=== PATIENT | female | born 1985 | race Asian ===

== ENCOUNTER 2023-08-28 10:13 | Outpatient (REF) | payer MEDICAID, SELFPAY ==
--- NOTE | ~2023-08-28 | MM_ITS ---
EXAMINATION: MM SCREENING DIGITAL BREAST TOMOSYNTHESIS, BILATERAL CLINICAL INFORMATION: Screening. Asymptomatic. COMPARISON: Mammography: This study is compared with prior exams dating back to 2021. TECHNIQUE: Digital breast tomosynthesis is performed in both the craniocaudal and mediolateral oblique views along with computer-aided detection (CAD). Synthesized 2D images are generated from the tomosynthesis. FINDINGS: The breasts are extremely dense, which lowers the sensitivity of mammography (ACR BI-RADS breast composition Category d). There are no significant masses, abnormal calcifications, or other abnormalities. There is tissue marker in each breast from prior benign percutaneous biopsy. MM/MM tomosynthesis screening BI IMPRESSION: No mammographic evidence of malignancy. ASSESSMENT: BI-RADS BI-RADS 2 - Benign Findings RECOMMENDATION: Routine annual mammography screening. 1 year F/U This examination should not preclude the clinical evaluation of a suspicious palpable abnormality. This patient's information was entered into a reminder system with a target due date for their next mammogram.
== END 2023-08-28 10:14 | disposition home or self-care (01) ==
LOC: HO.MAMMO 10:13
PROVIDERS: PCP Registered Nurse; Visit Provider Registered Nurse
DX: Z12.31 Encounter for screening mammogram for malignant neoplasm of breast (principal)
CPT/HCPCS: 77063; 77067

== ENCOUNTER → 2023-08-28 11:45 | Outpatient (BNV) | payer MEDICAID, SELFPAY | PROVIDERS: PCP Registered Nurse; Visit Provider Radiology Diagnostic Radiology | DX: Z12.31 Encounter for screening mammogram for malignant neoplasm of breast (principal) | CPT/HCPCS: 77063; 77067 ==

== ENCOUNTER 2024-11-03 11:43 | Emergency (ER) | payer OTHER, SELFPAY ==
--- NOTE | ~2024-11-03 | CT_ITS ---
CLINICAL HISTORY: ? post op complication? uterus sx in [place] --- Additional Notes or Special Instructions: NEED PREG CT of the abdomen and pelvis utilizing intravenous contrast. No comparison. Findings: In the right hepatic lobe there is a small ill-defined hypodensity that is technically indeterminate. The gallbladder is unremarkable. No hydronephrosis. The spleen and pancreas are unremarkable. No abdominal aortic aneurysm. No diverticulitis is identified. Suspect previous appendectomy. There is no bowel obstruction. There is mild left-sided colonic wall thickening. The bladder is mildly distended. There are operative changes of the lower anterior abdominal wall. Hysterectomy. There is a small amount of free fluid in the pelvis. 3.7 cm left adnexal cyst is presumably in the ovary. There is moderate stool in the rectosigmoid. Impression: Small amount of free fluid in the pelvis. Left adnexal cyst likely physiologic. No definite abscess is seen at this time. Follow-up as clinically warranted. There is mild colonic wall thickening raising the possibility of colitis. Ill-defined hypodensity in the right hepatic lobes. This is likely associated with a subtle hepatic mass. Recommend comparison to prior imaging or further evaluation with MR nonemergent basis. This document has been electronically signed by: Chriss Johnson MD on 11/03/2024 18:33:27
--- NOTE | 2024-11-03 12:05 | ED.GENADULT ---
HPI - General Adult General Chief complaint: Urogenital-Female Stated complaint: uteral tumor surg 1m ago, tear at incision? Time Seen by Provider: 11/03/24 16:02 Related Data Allergies Allergy/AdvReac Type Severity Reaction Status Date / Time No Known Allergies Allergy Verified 11/03/24 12:10 [facility] Social History Social History Smoked in Last 30 Days: No Use of substances other than those prescribed or required for medical reasons: No Advance Directives: No Advance Directives Information Provided: No Do you have a plan to hurt others: No Plan Physical Exam ED Vital Signs: Vital Signs - 24 hr 11/03/24 12:06 Temperature 97.5 F Pulse Rate 60 Respiratory Rate 14 Blood Pressure 126/70 Pulse Oximetry 100 Oxygen Delivery Method Room Air BMI result Body Mass Index 20.7 Course Course Course Narrative: Rapid medical examination performed in triage by Elidia Tristan PA-C. Patient is a 39 year old assigned female at presenting to the emergency department with vaginal bleeding. Patient states that a month ago she had a uteruine / ovarian surgery in [place] and 3 days ago while lifting luggage she felt something tear and is now having vaginal bleeding. Detailed physical exam and review of systems are deferred to the day treatment clinician/art therapist. Labs ordered. Patient placed back in the waiting room pending room availability and results. Medications Administered Discontinued Medications Generic Name Dose Route Start Last Admin Trade Name Freq PRN Reason Stop Dose Admin Iohexol 100 ml 11/03/24 17:21 11/03/24 17:22 Iohexol 350 Mg/Ml 100 Ml Infus..Btl IV 11/03/24 17:22 85 ml ONCE ONE Administration Medical Decision Making Lab Data 11/03/24 12:19 11/03/24 12:19 Labs: Lab Results 11/03/24 11/03/24 Range/Units 12:19 18:40 WBC 5.2 (4.8-10.8) X10*3/uL RBC 5.63 H (4.20-5.50) X10*6/uL Hgb 11.9 L (12.0-16.0) g/dl Hct 39.6 (37.0-47.0) % MCV 70.3 L (80.0-98.0) fL MCH 21.1 L (27.0-33.0) pg MCHC 30.1 L (31.0-35.0) g/dl RDW 29.1 H (11.0-16.0) % Plt Count 267 (160-400) X10*3/uL MPV TNP Immature Gran % (Auto) Cancelled Neut % (Auto) Cancelled Lymph % (Auto) Cancelled [place] % (Auto) Cancelled Eos % (Auto) Cancelled Baso % (Auto) Cancelled Lymph # (Auto) Cancelled [place] # (Auto) Cancelled Eos # (Auto) Cancelled Baso # (Auto) Cancelled Abs Immat Gran (auto) Cancelled Absolute Neuts (auto) Cancelled Absolute Nucleated RBC 0.000 (0.0-0.012) X10*3/uL Nucleated RBC % (auto) 0.0 (0.0-0.2) /100WBC Neutrophils % (Manual) 66 (45-73) % Band Neutrophils % 0 L (3-5) % Lymphocytes % (Manual) 23 (20-40) % Atypical Lymphs % (Man) 1 (0-6) % Monocytes % (Manual) 6 (2-11) % Eosinophils % (Manual) 4 (0-4) % Abs Neuts (Manual) 3.4 (2.0-8.3) X10*3/uL Lymphocytes # (Manual) 1.2 (1.2-4.9) X10*3/uL Atyp Lymphs # (Manual) 0.1 x10*3/uL Monocytes # (Manual) 0.3 (0.1-1.2) X10*3/uL Eosinophils # (Manual) 0.2 (0.0-0.4) X10*3/uL Toxic Vacuolation PRESENT Platelet Estimate NORMAL (NORMAL) Plt Morphology Comment NORMAL RBC Morphology NOTED Hypochromasia 1+ (5-14) /OIF Microcytosis 2+ (15-30) /OIF Target Cells 1+ (5-14) /OIF Acanthocytes (Spur) 2+ (3-5) /OIF Smear Path Review SEE NOTE PT 11.4 (10.9-12.4) SEC INR 1.0 (0.9-1.1) Sodium 141 (135-145) mmol/L Potassium 3.6 (3.3-5.1) mmol/L Chloride 106 (96-108) mmol/L Carbon Dioxide 27 (22-29) mmol/L Anion Gap 12 (12-20) BUN 11 (9-16) mg/dL Creatinine 0.76 (0.5-1.4) mg/dL Estim Creat Clear Calc 89.6 Estimated GFR > 60 Random Glucose 75 (60-115) mg/dL Calcium 9.2 (8.4-10.2) mg/dL Total Bilirubin 0.3 (0.0-1.0) mg/dL AST 26 (5-31) U/L ALT 27 (0-31) U/L Alkaline Phosphatase 91 (39-117) U/L Total Protein 8.2 H (6.5-8.0) g/dL Albumin 4.5 (3.5-5.0) g/dL Beta HCG, Quant < 2 mIU/mL Urine Color Yellow Urine Appearance Clear Urine pH 6.0 (5.0-9.0) Ur Specific [place] >= 1.030 H (1.005-1.025) Urine Protein Negative (Neg-Trace) mg/dL Urine Glucose (UA) Negative (Negative) mg/dL Urine Ketones Negative (Negative) mg/dL Urine Blood Moderate (2+) H (Negative) Urine Nitrite Negative (Negative) Ur Leukocyte Esterase Small (1+) H (Negative) Urine RBC 3-5 H (0-2) /HPF Urine WBC 11-20 H (0-5) /HPF Ur Squamous Epith Cells 6-10 (0-2) /HPF Urine Bacteria None Seen (None Seen) Hyaline Casts 0-2 (0-2) /LPF Discharge Plan Discharge Clinical Impression: Ovarian cyst, Hepatic cyst Patient Disposition: Home, Self-Care Instructions: Ovarian Cyst (ED) Additional Instructions: A cyst was found in your liver. Please closely follow-up. Small risk of malignancy exists. Referrals: Natalie Kerr MD [Primary Care Provider, Internal Medicine] - 11/07/24 Brando Kern MD [Physician, EVENT SERVICES MANAGER] - 11/07/24 Referral Note: Follow-up with OBGYN on an outpatient basis Interventions: ED Discharge Assessment Last Done: 11/03/24 19:30 Discharge Date/Time: 11/03/24 19:30 Print Language: Kike
[2024-11-03 12:06] VITALS: BP 126/70; PULSE 60; RESP 14; TEMP 36.4; O2SAT 100; BMI 20.7
[2024-11-03 12:27] LABS: Hematocrit 39.6 % (37.0-47.0); Hemoglobin 11.9 g/dl (12.0-16.0); Mean Corpuscular HGB Conc 30.1 g/dl (31.0-35.0); Mean Corpuscular Hemoglobin 21.1 pg (27.0-33.0); Mean Corpuscular Volume 70.3 fL (80.0-98.0); NRBC Abs Auto 0.000 X10*3/uL (0.0-0.012); NRBC Pct Auto 0.0 /100WBC (0.0-0.2); Platelet Count 267 X10*3/uL (160-400); Red Blood Count 5.63 X10*6/uL (4.20-5.50); White Blood Count 5.2 X10*3/uL (4.8-10.8)
[2024-11-03 12:39] LABS: INTERNATIONAL NORM RATIO 1.0 (0.9-1.1); Prothrombin Time 11.4 SEC (10.9-12.4)
[2024-11-03 12:40] LABS: Alanine Aminotransferase 27 U/L (0-31); Albumin Level 4.5 g/dL (3.5-5.0); Alkaline Phosphatase 91 U/L (39-117); Anion Gap 12 (12-20); Aspartate Amino Transferase 26 U/L (5-31); Blood Urea Nitrogen 11 mg/dL (9-16); Calcium 9.2 mg/dL (8.4-10.2); Carbon Dioxide 27 mmol/L (22-29); Chloride 106 mmol/L (96-108); Creatinine Clr Calc Pharmacy 89.6; Estimated Glomerular Filt Rate > 60; Potassium 3.6 mmol/L (3.3-5.1); Sodium 141 mmol/L (135-145); Total Protein 8.2 g/dL (6.5-8.0)
[2024-11-03 13:00] LABS: Atypical Lymph Absolute Manual 0.1 x10*3/uL; Atypical Lymphs Percent Manual 1 % (0-6); Eosinophils Absolute Manual 0.2 X10*3/uL (0.0-0.4); Eosinophils Percent Manual 4 % (0-4); Lymphocytes Absolute Manual 1.2 X10*3/uL (1.2-4.9); Lymphocytes Percent Manual 23 % (20-40); Monocytes Absolute Manual 0.3 X10*3/uL (0.1-1.2); Monocytes Percent Manual 6 % (2-11); Neutrophils Percent Manual 66 % (45-73)
[2024-11-03 13:01] LABS: Band Neutrophils Percent 0 % (3-5); Neutrophils Absolute Manual 3.4 X10*3/uL (2.0-8.3); RBC Morphology NOTED
[2024-11-03 13:02] LABS: Microcytosis 2+ (15-30) /OIF
[2024-11-03 13:04] LABS: Acanthocytes 2+ (3-5) /OIF
[2024-11-03 13:07] LABS: Hypochromasia 1+ (5-14) /OIF; Target Cells 1+ (5-14) /OIF; Toxic Vacuolation PRESENT
[2024-11-03] MEDS: iohexoL 350 MG/ML 100 ML INFUS..BTL IV (17:22)
--- NOTE | 2024-11-03 17:53 | ED_ITS ---
HPI - Female Genitourinary General Chief complaint: Urogenital-Female Stated complaint: uteral tumor surg 1m ago, tear at incision? Time Seen by Provider: 11/03/24 16:02 History of Present Illness HPI Narrative: Patient is a 39-year-old female presented today with having lower abdominal pain after ovarian surgery about 2-1/2 weeks ago. Patient stated that she lifted something heavy 3 days ago then felt there was a pinkish discharge from her vagina. No discharge since currently no pain. No nausea no vomiting. She was able to get on a plane from [place] and [place] the [place]. No fever no chills. No coughing or congestion or upper respiratory symptoms. No change in bowel movement. Patient from home. She describes she had an mass in her abdomen and then had a resected. It was an open resection. Related Data Allergies Allergy/AdvReac Type Severity Reaction Status Date / Time No Known Allergies Allergy Verified 11/03/24 12:10 Review of Systems 2 Review of Systems: No fever no chills Positive abdominal pain 3 days ago. Yes all other systems are reviewed and are negative [facility] Past Medical History Attestation statement: The following information was validated with the patient. Social History Social History Advance Directives: No Advance Directives Information Provided: No Do you have a plan to hurt others: No Plan Physical Exam 2 Exam: Exam: Appearance: Alert. Oriented X3. No acute distress. Eyes: Pupils equal, round and reactive to light. ENT: Pharynx normal. Neck: Normal inspection. Neck supple. No lymph nodes noted. No crepitus CVS: Normal heart rate and rhythm. Pulses normal. Normal S1 and S2 Respiratory: No respiratory distress. Breath sounds normal. No Wheezing. No rales Abdomen: Soft and nontender. No rigidity. No distention. good BS x4. Patient's scar seems to be intact. Well healed. No discharge. Skin: Skin warm and dry. Normal skin color. Normal skin turgor. Extremities: No lower extremity edema. Neurovascular intact to all extremities. No Lacerations. No Rash Neuro: Oriented X 3. No motor deficit. No sensory deficit. Moving all extermities. No slurred speech Vital Signs: Vital Signs: Last Vital Signs Temp 98.1 F 11/03/24 18:31 Pulse 46 L 09/08/25 18:31 Resp 16 11/03/24 18:31 BP 132/50 L 11/03/24 18:31 Pulse Ox 100 11/03/24 18:31 O2 Del Method Room Air 11/03/24 18:31 BMI result Body Mass Index 20.7 Medications Administered Discontinued Medications Generic Name Dose Route Start Last Admin Trade Name Consuelo PRN Reason Stop Dose Admin Iohexol 100 ml 11/03/24 17:21 11/03/24 17:22 Iohexol 350 Mg/Ml 100 Ml Infus..Btl IV 11/03/24 17:22 85 ml ONCE ONE Administration Medical Decision Making Medical Decision Making [facility] Narrative: I reviewed patient's old record from [facility] as much as possible through group [employer] translate. Patient's seems like she had an pelvic mass that was removed in [facility] about 10 days ago. Patient [place] the [place] about 3[place]4 days ago at that time lifted something heavy and started having some mild abdominal pain which has subsequently subsided. My interpretation patient's urine negative for infection. Patient's electrolytes are normal. White count is normal. CT scan of the abdomen pelvis showed no acute abscess no perforation small amount of fluid in the pelvis likely physiologic. There is an ovarian cyst noted on the left side. Patient is status post hysterectomy during this procedure unlikely to have related issues. Patient also noted to have a liver cyst. Explained to patient need for follow-up for both. aware. Patient aware. Currently in stable condition will discharge home Differential Diagnosis Differential Diagnoses: The differential diagnosis associated with the presentation includes Ovarian cyst, bleed, abscess, perforation, foreign object Admission/Observation Consideration of admission/observation: Escalation of care including admission/observation considered Lab Data [facility] Lab Attestation statement: I reviewed the patient's lab results. 11/03/24 12:19 11/03/24 12:19 Labs: Lab Results 11/03/24 11/03/24 Range/Units 12:19 18:40 WBC 5.2 (4.8-10.8) X10*3/uL RBC 5.63 H (4.20-5.50) X10*6/uL Hgb 11.9 L (12.0-16.0) g/dl Hct 39.6 (37.0-47.0) % MCV 70.3 L (80.0-98.0) fL MCH 21.1 L (27.0-33.0) pg MCHC 30.1 L (31.0-35.0) g/dl RDW 29.1 H (11.0-16.0) % Plt Count 267 (160-400) X10*3/uL MPV TNP Immature Gran % (Auto) Cancelled Neut % (Auto) Cancelled Lymph % (Auto) Cancelled [place] % (Auto) Cancelled Eos % (Auto) Cancelled Baso % (Auto) Cancelled Lymph # (Auto) Cancelled [place] # (Auto) Cancelled Eos # (Auto) Cancelled Baso # (Auto) Cancelled Abs Immat Gran (auto) Cancelled Absolute Neuts (auto) Cancelled Absolute Nucleated RBC 0.000 (0.0-0.012) X10*3/uL Nucleated RBC % (auto) 0.0 (0.0-0.2) /100WBC Neutrophils % (Manual) 66 (45-73) % Band Neutrophils % 0 L (3-5) % Lymphocytes % (Manual) 23 (20-40) % Atypical Lymphs % (Man) 1 (0-6) % Monocytes % (Manual) 6 (2-11) % Eosinophils % (Manual) 4 (0-4) % Abs Neuts (Manual) 3.4 (2.0-8.3) X10*3/uL Lymphocytes # (Manual) 1.2 (1.2-4.9) X10*3/uL Atyp Lymphs # (Manual) 0.1 x10*3/uL Monocytes # (Manual) 0.3 (0.1-1.2) X10*3/uL Eosinophils # (Manual) 0.2 (0.0-0.4) X10*3/uL Toxic Vacuolation PRESENT Platelet Estimate NORMAL (NORMAL) Plt Morphology Comment NORMAL RBC Morphology NOTED Hypochromasia 1+ (5-14) /OIF Microcytosis 2+ (15-30) /OIF Target Cells 1+ (5-14) /OIF Acanthocytes (Spur) 2+ (3-5) /OIF PT 11.4 (10.9-12.4) SEC INR 1.0 (0.9-1.1) Sodium 141 (135-145) mmol/L Potassium 3.6 (3.3-5.1) mmol/L Chloride 106 (96-108) mmol/L Carbon Dioxide 27 (22-29) mmol/L Anion Gap 12 (12-20) BUN 11 (9-16) mg/dL Creatinine 0.76 (0.5-1.4) mg/dL Estim Creat Clear Calc 89.6 Estimated GFR > 60 Random Glucose 75 (60-115) mg/dL Calcium 9.2 (8.4-10.2) mg/dL Total Bilirubin 0.3 (0.0-1.0) mg/dL AST 26 (5-31) U/L ALT 27 (0-31) U/L Alkaline Phosphatase 91 (39-117) U/L Total Protein 8.2 H (6.5-8.0) g/dL Albumin 4.5 (3.5-5.0) g/dL Beta HCG, Quant < 2 mIU/mL Urine Color Yellow Urine Appearance Clear Urine pH 6.0 (5.0-9.0) Ur Specific [place] >= 1.030 H (1.005-1.025) Urine Protein Negative (Neg-Trace) mg/dL Urine Glucose (UA) Negative (Negative) mg/dL Urine Ketones Negative (Negative) mg/dL Urine Blood Moderate (2+) H (Negative) Urine Nitrite Negative (Negative) Ur Leukocyte Esterase Small (1+) H (Negative) Urine RBC 3-5 H (0-2) /HPF Urine WBC 11-20 H (0-5) /HPF Ur Squamous Epith Cells 6-10 (0-2) /HPF Urine Bacteria None Seen (None Seen) Hyaline Casts 0-2 (0-2) /LPF Independent Interpretation I performed an independent interpretation of an: CT Scan (No overt obstruction noted) Radiology Impression Discussion of test interpretation with radiology: I have reviewed the radiologist's reading. External Record Review External record reviewed: Outpatient record Social Determinants Patient?s care significantly limited by Social Determinants of Health including: Problems related to primary support group and Unemployment Discharge Plan Discharge Clinical Impression: Ovarian cyst, Hepatic cyst Patient Disposition: Home, Self-Care Instructions: Ovarian Cyst (ED) Additional Instructions: A cyst was found in your liver. Please closely follow-up. Small risk of malignancy exists. Referrals: Natalie Kerr MD [Primary Care Provider, Internal Medicine] - 11/07/24 Brando Kern MD [Physician, AIRPLANE RENTAL CLERK] - 11/07/24 Referral Note: Follow-up with OBGYN on an outpatient basis Print Language: Paraguayan
[2024-11-03 18:31] VITALS: BP 132/50; PULSE 46; RESP 16; TEMP 36.7; O2SAT 100
--- OUTSIDE RECORDS SUMMARY | 2024-11-03 18:31 | XMS_ITS | Patient Health Record ---
Author Organization [facility] [place] Address [address] [place] [address] Care Team Providers Care Sat Tutor Name Role Phone Javier Donaldson Unavailable [phone] Allergies No Known Allergies Reason For Referral No Information Social History Tobacco Use: Social History Observation Description Date Details (start date - stop date) Never Smoker NA - NA Tobacco Use/Smoking Question Answer Notes Are you a: nonsmoker Alcohol Screen Question Answer Notes Did you have a drink containing alcohol in the p ast year? No Points 0 Interpretation Negative Tobacco use other than smoking: Question Answer Notes Are you an other tobacco user? No Problems Problem Type SNOMED Code ICD Code Onset Dates Problem Status W/U Status Risk Notes Problem Acquired hallux valgus (40637008) Hallux valgus (acquired), left foot (M20.12) Active confirmed Plan Of Treatment No Information Insurance Providers Payer Name Payer Address Payer Phone Subscriber Number Group Number Insured Name Patient Relationship to Insured Coverage Start Date Coverage End Date Family Health Plan [address] [place] [id number] Prabhjot Ogden Self - patient is the insured Medical (General) History Surgical History Surgery Date(Month/Year)
--- OUTSIDE RECORDS SUMMARY | 2024-11-03 18:31 | XMS_ITS | Encounter Summary ---
Author Organization [employer] Address [address] [place] [address] Care Team Providers Care Quality Assurance Supervisor Final Name Role Phone Shakira Jay OYSTER HARVESTER Primary Care Provider [phone] Encounter Details Date Type Department Care Team (Late st Contact Info) Description 11/03/2024 Orders Only GENERIC EXTERNAL DATA DEPARTMENT Provider, Generic External Data Social History Tobacco Use Types Packs/Day Years Used Date Smoking Tobacco: Never Smokeless Tobacco: Never Alcohol Use Standard Drinks/Week Comments Never 0 (1 standard drink = 0.6 oz pur e alcohol) Depression Answer Date Recorded Patient Health Questionnaire-9 Score 3 08/03/2023 Patient Health Questionnaire-9 Score 3 08/03/2023 Last PHQ-9: Questionnaire Data Not on file 0 08/03/2023 Housing Stability Answer Date Recorded What is your housing situation today? I have adrienne john 08/03/[address] you li ve. Do you have problems with any of the following? None of the above 08/03/2023 Food Insecurity Answer Date Recorded Within the past 12 months, y ou worried that your food would run out before you got money to buy more: Never True 08/03/2023 Within the past 12 months,th e food you bought just didn't last and you didn't have enough money to get more: Never True 08/2023 Transportation Answer Date Recorded In the past 12 months, has l ack of transportation kept you from medical appts, meetings, work or from getting things needed for daily living? No 08/03/2023 Utilities Answer Date Recorded In the past 12 months, has t he electric, gas, oil or water company threatened to shut off services in your home? No 08/03/2023 Depression Answer Date Recorded Patient Health Questionnaire-2 Score 0 03/03/2024 Comments Unknown Sex and Gender Information Value Date Recorded Sex Assigned at Female 02/02/2022 10:31 AM EST Legal Sex Female 10:29 AM EST Gender Identity Female 02/02/2022 10:31 AM EST Sexual Orientation Straight 02/02/2022 10 :32 AM EST documented as of this encounter Plan of Treatment Upcoming Encounters Date Type Department Care Team (Late st Contact Info) Description 12/05/2024 11:00 AM EDT Office Visit [facility] [address] [place] [address] [place], [place], [facility] [address] [place] [address] Pending Results Name Type Priority Associated Diagnoses Date /Time CBC auto differential Lab Routine 09/2024 12:19 PM EDT documented as of this encounter Procedures Procedure Name Priority Date/Time Associated Diagnosis Comments COMPLETE BLOOD COUNT MAN DIF Routine 11/03/2024 12:19 PM EDT CBC WITH AUTO DIFFERENTIAL Routine 11/03/2024 12:19 PM EDT PROTHROMBIN TIME-INR Routine 11/03/2024 12:19 PM EDT HCG, TOTAL, QN Routine 11/03/2024 12:19 PM EDT COMPREHENSIVE METABOLIC PANEL Routine 11/03/2024 12:19 PM EDT documented in this encounter Results * hCG, Total, Quantitative (11/03/2024 12:19 PM EDT) HCG Quantitative <2 mIU/mL [facility] Comment:Weeks post LMP Appro ximate hCG(Last Menstrual Period) Range (mIU/ml)3 - 4 weeks 9 - 1304 - 5 weeks 75 - 2,6005 - 6 weeks 850 - 20,8006 - 7 weeks 4000 - 100,2007 - 12 weeks 11,500 - 289,15784 - 16 weeks 18,300 - 137,59950 - 29 weeks (2nd trimester) 1,400 - 53,57770 - 41 weeks (3rd trimester) 940 - 60,000The [place] B- hCG assay is used for the early detection ofpregnancy; it cannot be used to diagnose any conditionunrelated to . If a B-hCG level is not supportedby the clinical evidence, results should be confirmed by analternative method (qualitative urine hCG, for example). 11/03/2024 12:1 9 PM EDT 11/03/2024 12:22 PM EDT us Generic External Data Provider LAB BLOOD ORDERAB LES Final Result [facility] [address] [place] [address] [phone] * (ABNORMAL) Complete Blood Count Manual Diff (11/03/2024 12:19 PM EDT) White Blood Count 5.2 4.8 - 10.8 X10*3/uL [facility] Red Blood Count 5.63(H) 4.20 - 5.50 X10*6/uL [facility] Hemoglobin 11.9(L) 12.0 - 16.0 g/dl [facility] Hematocrit 39.6 37.0 - 47.0 % [facility] Mean Corpuscular Volume 70.3(L) 80.0 - 98.0 fL [facility] Mean Corpuscular Hemoglobin 21.1(L) 27.0 - 33.0 pg [facility] Mean Corpuscular HGB Conc 30.1(L) 31.0 - 35.0 g/dl [facility] Red Cell Distribution Width 29.1(H) 11.0 - 16.0 % [facility] Platelet Count 267 160 - 400 X10*3/uL [facility] Mean Platelet Volume TNP 9.4 - 12.3 fL [facility] NRBC Pct Auto 0.0 0.0 - 0.2 /100WBC [facility] NRBC Abs Auto 0.000 0.0 - 0.012 X10*3/uL [facility] Neutrophils % Manual 66 45 - 73 % [facility] Band Neutrophils Percent 0(L) 3 - 5 % [facility] Lymphocytes Percent Manual 23 20 - 40 % [facility] Atypical Lymphs Percent Manual 1 0 - 6 % [facility] Monocytes Percent Manual 6 2 - 11 % [facility] EOSINOPHILS % MANUAL 4 0 - 4 % [facility] NEUTROPHILS ABSOLUTE MANUAL 3.4 2.0 - 8.3 X10*3/uL [facility] LYMPHOCYTES ABSOLUTE MANUAL 1.2 1.2 - 4.9 X10*3/uL [facility] Atypical Lymph Absolute Manual 0.1 x10*3/uL [facility] MONOCYTES ABSOLUTE MANUAL 0.3 0.1 - 1.2 X10*3/uL [facility] EOSINOPHILS ABSOLUTE MANUAL 0.2 0.0 - 0.4 X10*3/uL [facility] Platelet Estimate NORMAL NORMAL [facility] Platelet Morphology Comment NORMAL [facility] RBC Morphology NOTED [facility] Hypochromasia 1+ (5-14) /[facility] Microcytosis 2+ (15-30) /[facility] Target Cells 1+ (5-14) /[facility] Toxic Vacuolation PRESENT [facility] Acanthocytes 2+ (3-5) /[facility] 11/03/2024 12:1 9 PM EDT 11/03/2024 12:22 PM EDT us Generic External Data Provider LAB BLOOD ORDERAB LES Final Result [facility] [address] [place] [address] [phone] * (ABNORMAL) Comprehensive Metabolic Panel (11/03/2024 12:19 PM EDT) Sodium 141 135 - 145 mmol/L [facility] Potassium 3.6 3.3 - 5.1 mmol/L [facility] Chloride 106 96 - 108 mmol/L [facility] Carbon Dioxide 27 22 - 29 mmol/L [facility] Anion Gap 12 12 - 20 [facility] Urea Nitrogen (BUN) 11 9 - 16 mg/dL [facility] Creatinine, Serum 0.76 0.5 - 1.4 mg/dL [facility] Creatinine Clr Calc Pharmacy 89.6 [facility] Comment:Provided height and weight: 167.64 cm,58.3 kg.eGFR (calculated from the MDRD study equation) and eCrCl(calculated from the Cockcroft-Gault equation) are based ondifferent parameters and may not yield comparable results.If eCrCl result is absurd, please check patient'sheight/weight. Estimated Glomerular Filt Rate >60 [facility] Comment:Chronic Kidney Disea se: Estimated GFR < 60 mL/min/1.03p2Xambxc Kidney Disease: Estimated GFR < 15 mL/min/1.73m2 Glucose 75 60 - 115 mg/dL [facility] Calcium 9.2 8.4 - 10.2 mg/dL [facility] Bilirubin, Total 0.3 0.0 - 1.0 mg/dL [facility] Aspartate Amino Transferase 26 5 - 31 U/L [facility] Alanine Aminotransferase 27 0 - 31 U/L [facility] Total Protein 8.2(H) 6.5 - 8.0 g/dL [facility] Albumin Level 4.5 3.5 - 5.0 g/dL [facility] Alkaline Phosphatase 91 39 - 117 U/L [facility] 11/03/2024 12:1 9 PM EDT 11/03/2024 12:22 PM EDT us Generic External Data Provider LAB BLOOD ORDERAB LES Final Result [facility] [address], [place] [phone] * Prothrombin Time-INR (11/03/2024 12:19 PM EDT) Prothrombin Time 11.4 10.9 - 12.4 SEC [facility] INTERNATIONAL NORM RATIO 1.0 0.9 - 1.1 [facility] Comment:INTERNATIONAL NORMAL IZED RATIO (INR) REFERENCE RANGES Reference RangeFor patients not on anticoagulant therapy: 0.9 - 1.1INR ranges for oral anticoagulanttherapy:For prevention and treatment of venous thrombosis and pulmonary embolism: 2.0 - 3.0For acute myocardial infarction with aspirin therapy: 2.0 - 3.0For acute myocardial infarction without aspirin therapy: 3.0 - 4.0For patients with mechanical prosthetic heart valves: 2.5 - 3.5 11/03/2024 12:1 9 PM EDT 11/03/2024 12:22 PM EDT us Generic External Data Provider LAB BLOOD ORDERAB LES Final Result [facility] [address] [place] [address] [phone] documented in this encounter Visit Diagnoses Not on filedocumented in this encounter Additional Health Concerns Assessment Noted Time PHQ-9 Depression Total Score: 3 08/03/19 24 9:23 AM EDT documented as of this encounter Care Teams Quality Assurance Supervisor Final Relationship Specialty Start Date End Date Shakira Jay FNP [address] [place] [address] PCP - General Family Medicine 02/16/22 documented as of this encounter
--- OUTSIDE RECORDS SUMMARY | 2024-11-03 18:31 | XMS_ITS | Clinical Summary ---
Author Organization [employer] Address [address] [place] [address] Care Team Providers Care Web Offset Press Feeder Name Role Phone Shakira Jay [facility] Primary Care Provider [phone] Allergies No known active allergies Medications cetirizine (ZyrTEC) 10 MG tabletIndication s:Rash and nonspecific skin eruption Take 1 tablet (10 mg) by mouth Once per day. 90 tablet 3 5 03/03/19 26 Active Additional Information Patient not taking.Reported on 08/07/2024 hydrOXYzine HCl (Atarax) 25 MG tabletIndication s:Anxiety Take 1 tablet (25 mg) by mouth if needed at bedtime for anxiety. 90 tablet 1 5 03/03/19 26 Active Additional Information Patient not taking.Reported on 08/07/2024 triamcinolone (Kenalog) 0.1 % ointmentIndicati ons:Rash and nonspecific skin eruption Apply topically 2 times daily. 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 Hives of unknown origin 01/17/2024 MC (molluscum contagiosum) 01/17/2024 Abdominal mass, left lower quadrant 09/06/2023 Constipation 08/11/2023 Early satiety 08/11/2023 Eczema 08/11/2023 Pityriasis rosea 08/11/2023 Encounters Date Type Department Care Team Description 11/03/2024 Orders Only GENERIC EXTERNAL DATA DEPARTMENT Provider, Generic External Data 08/07/2024 8:00 AM EDT Office Visit [facility] [address] [place] [address] Yasmine العلي Dental calculus (Primary Dx); Dental plaque from Last 3 Months Social History Tobacco Use Types Packs/Day Years Used Date Smoking Tobacco: Never Smokeless Tobacco: Never Tobacco Cessation:Counseling Given: Not Answered Alcohol Use Standard Drinks/Week Comments Never 0 [...] Orientation Straight 02/02/2022 10 :32 AM EST Last Filed Vital Signs Vital Sign Reading Time Taken Comments Blood Pressure 110/68 08/07/2024 8:10 AM EDT Pulse 72 03/03/2024 9:10 AM EST Temperature 36.2 C (97.1 F) 03/03/2024 9:10 AM EST Respiratory Rate 16 03/03/2024 9:10 AM EST Oxygen Saturation 99% 03/03/2024 9:10 AM EST Inhaled Oxygen Concentration - - Weight 60.8 kg (134 lb) 03/03/2024 9:10 AM EST Height 167.6 cm (5' 6 ) 03/03/2024 9:10 AM EST Body Mass Index 21.63 03/03/2024 9:10 AM EST Plan of Treatment Upcoming Encounters Date Type Department Care Team (Late st Contact Info) Description 12/05/2024 11:00 AM EDT Office Visit [facility] [address], [place] [phone] [place], [place], [facility] [address] [place] [address] Health Maintenance Due Date Last Done Comments HIV Screening 1985 Disability Screening 1983 Alcohol/Substance Use Screening 1995 Family Planning (PISQ) 1998 HPV Vaccines (1 - 3-dose series) 1998 Hepatitis C Screening 2001 DTaP/Tdap/Td Vaccines (1 - Tdap) 2002 Hepatitis B Vaccines (1 of 3 - 19+ 3-dose series) 2002 Pap Smear 2004 Cervical Cancer Screening 2013 HPV/Cotest 2013 SDOH Screening 08/02/2024 08/03/2023 Mammogram 08/27/2024 08/28/2023 COVID-19 Vaccine ( season) 2024 11/04/2020, 09/20/2020 Influenza Vaccine (#1) 2024 , 04/29/2019, 04/29/2019, Additional history exists Dental X-Ray: Bitewings 01/31/2025 01/31/2024 Dental Oral Exam 02/07/2025 08/07/2024, 01/31/2024 Dental Prophylaxis 02/07/2025 08/07/2024, 01/31/2024 Depression Screening 03/03/2025 03/03/2024, 08/03/19 Tobacco Screening 08/07/2025 08/07/2024 Dental X-Ray: Full Mouth 01/31/2027 01/31/2024 Zoster Vaccines (1 of 2) 2033 RSV Patients and Patients Aged 60 years or older (1 - 1-dose 75+ series) 2058 HIB Vaccines Aged Out No longer eligi ble based on patient's age to complete this topic Hepatitis A Vaccines Aged Out No long er eligible based on patient's age to complete this topic IPV Vaccines Aged Out No longer eligi ble based on patient's age to complete this topic Meningococcal B Vaccine Aged Out No l onger eligible based on patient's age to complete this topic Meningococcal Vaccine Aged Out No deniz sera eligible based on patient's age to complete this topic Pneumococcal Vaccine: Pediatrics (0 to 5 Years) and At-Risk Patients (6 to 49) Years Aged Out No longer eligible based on patient's age to complete this topic RSV under 20 months Aged Out No longe r eligible based on patient's age to complete this topic Rotavirus Vaccines Aged Out No longer eligible based on patient's age to complete this topic Procedures Procedure Name Priority Date/Time Associated Diagnosis Comments HCG, TOTAL, QN Routine 11/03/2024 12:19 PM EDT COMPLETE BLOOD COUNT MAN DIF Routine 11/03/2024 12:19 PM EDT COMPREHENSIVE METABOLIC PANEL Routine 11/03/2024 12:19 PM EDT PROTHROMBIN TIME-INR Routine 11/03/2024 12:19 PM EDT CBC WITH AUTO DIFFERENTIAL Routine 11/03/2024 12:19 PM EDT PERIODIC ORAL EVALUATION - ESTABLISHED PATIENT Routine 08/07/2024 8:00 AM EDT ORAL HYGIENE INSTRUCTIONS Routine 08/07/2024 8:00 AM EDT Dental calculus Dental plaque PROPHYLAXIS - ADULT Routine 08/07/2024 8 :00 AM EDT Dental calculus Dental plaque INTRAORAL - COMPLETE SERIES OF RADIOGRAPHIC IMAGES Routine 01/31/2024 8:00 AM EST BI MAMMOGRAM SCREENING TOMOSYNTHESIS BILATERAL Routine 08/28/2023 11:20 AM EDT Screening mammogram for breast cancer from Last 3 Months or Most Recently Relevant to Health Maintenance Results * (ABNORMAL) Complete Blood Count Manual Diff (11/03/2024 12:19 PM EDT) White Blood Count 5.2 4.8 - 10.8 X10*3/uL [facility] Red Blood Count 5.63(H) 4.20 - 5.50 X10*6/uL [facility] Hemoglobin 11.9(L) 12.0 - 16.0 g/dl [facility] Hematocrit 39.6 37.0 - 47.0 % [facility] Mean Corpuscular Volume 70.3(L) 80.0 - 98.0 fL [facility] Mean Corpuscular Hemoglobin 21.1(L) 27.0 - 33.0 pg [facility] Mean Corpuscular HGB Conc 30.1(L) 31.0 - 35.0 g/dl [facility] Red Cell Distribution Width 29.1(H) 11.0 - 16.0 % [facility] Platelet Count 267 160 - 400 X10*3/uL [facility] Mean Platelet Volume TNP 9.4 - 12.3 fL [facility] NRBC Pct Auto 0.0 0.0 - 0.2 /100WBC [facility] NRBC Abs Auto 0.000 0.0 - 0.012 X10*3/uL [facility] Neutrophils % Manual 66 45 - 73 % [facility] Band Neutrophils Percent 0(L) 3 - 5 % [facility] Lymphocytes Percent Manual 23 20 - 40 % [facility] Atypical Lymphs Percent Manual 1 0 - 6 % [facility] Monocytes Percent Manual 6 2 - 11 % [facility] EOSINOPHILS % MANUAL 4 0 - 4 % [facility] NEUTROPHILS ABSOLUTE MANUAL 3.4 2.0 - 8.3 X10*3/uL [facility] LYMPHOCYTES ABSOLUTE MANUAL 1.2 1.2 - 4.9 X10*3/uL [facility] Atypical Lymph Absolute Manual 0.1 x10*3/uL [facility] MONOCYTES ABSOLUTE MANUAL 0.3 0.1 - 1.2 X10*3/uL [facility] EOSINOPHILS ABSOLUTE MANUAL 0.2 0.0 - 0.4 X10*3/uL [facility] Platelet Estimate NORMAL NORMAL [facility] Platelet Morphology Comment NORMAL [facility] RBC Morphology NOTED [facility] Hypochromasia 1+ (5-14) /[facility] Microcytosis 2+ (15-30) /[facility] Target Cells 1+ (5-14) /[facility] Toxic Vacuolation PRESENT [facility] Acanthocytes 2+ (3-5) /[facility] 11/03/2024 12:1 9 PM EDT 11/03/2024 12:22 PM EDT Generic External Data Provider LAB BLOOD ORDERAB LES Final Result Performing Organization Address [facility] Co de Phone Number [facility] [address] [place] [phone] * Prothrombin Time-INR (11/03/2024 12:19 PM EDT) Prothrombin Time 11.4 10.9 - 12.4 SEC [facility] INTERNATIONAL NORM RATIO 1.0 0.9 - 1.1 [facility] Comment:INTERNATIONAL NORMAL IZED RATIO (INR) REFERENCE [...] Provider LAB BLOOD ORDERAB LES Final Result Performing Organization Address [facility] Co de Phone Number [facility] [address] [place] [phone] * hCG, Total, Quantitative (11/03/2024 12:19 PM EDT) HCG Quantitative <2 mIU/mL [facility] Comment:Weeks post LMP Appro ximate hCG(Last Menstrual Period) Range (mIU/ml)3 - 4 weeks 9 - 1304 - 5 weeks 75 - 2,6005 - 6 weeks 850 - 20,8006 - 7 weeks 4000 - 100,2007 - 12 weeks 11,500 - 289,04768 - 16 weeks 18,300 - 137,19364 - 29 weeks (2nd trimester) 1,400 - 53,06705 - 41 weeks (3rd trimester) 940 - [...] Provider LAB BLOOD ORDERAB LES Final Result [facility] [address] [place] [phone] * (ABNORMAL) Comprehensive Metabolic Panel (11/03/2024 12:19 PM EDT) Sodium 141 135 - 145 mmol/L [facility] Potassium 3.6 3.3 - 5.1 mmol/L [facility] Chloride 106 96 - 108 mmol/L [facility] Carbon Dioxide 27 22 - 29 mmol/L [facility] Anion Gap 12 12 - 20 [facility] Urea Nitrogen (BUN) 11 9 - 16 mg/dL [facility] Creatinine, Serum 0.76 0.5 - 1.4 mg/dL [facility] Creatinine Clr Calc Pharmacy 89.6 [facility] Comment:Provided height and weight: 167.64 cm,58.3 kg.eGFR (calculated from the MDRD study equation) and eCrCl(calculated from the Cockcroft-Gault equation) are based ondifferent parameters and may not yield comparable results.If eCrCl result is absurd, please check patient'sheight/weight. Estimated Glomerular Filt Rate >60 [facility] Comment:Chronic Kidney Disea se: Estimated GFR < 60 mL/min/1.19l1Cnxdgk Kidney Disease: Estimated GFR < 15 mL/min/1.73m2 Glucose 75 60 - 115 mg/dL [facility] Calcium 9.2 8.4 - 10.2 mg/dL [facility] Bilirubin, Total 0.3 0.0 - 1.0 mg/dL [facility] Aspartate Amino Transferase 26 5 - 31 U/L [facility] Alanine Aminotransferase 27 0 - 31 U/L [facility] Total Protein 8.2(H) 6.5 - 8.0 g/dL [facility] Albumin Level 4.5 3.5 - 5.0 g/dL [facility] Alkaline Phosphatase 91 39 - 117 U/L [facility] 11/03/2024 12:1 9 PM EDT 11/03/2024 12:22 PM EDT us Generic External Data Provider LAB BLOOD ORDERAB LES Final Result [facility] [address] [place] [phone] * BI Mammogram Screening Tomosynthesis Bilateral (08/28/2023 11:20 AM EDT) Anatomical Region Laterality Modality Breast Bilateral Mammography 08/28/2023 11:2 0 AM EDT Narrative 09/26/2023 8:25 AM EDT [facility] [address] [place] [address] Mammography Report Signed Patient: Prabhjot Ogden MR#: [id number] 708 : 1985 Acct:[id number] Age/Sex: 38 / F ADM Date: 08/28/23 Loc: [facility] Attending Dr: Shakira Jay OPERATIONS SCHEDULER Ordering Physician: Shakira Jay OPERATIONS SCHEDULER Results: 2Beni gn Findings Date of Service: 08/28/23 Follow Up: 1 Year From Orig inal Mammogram Procedure(s): MM tomosynthesis screening BI Accession Number(s): [id number] cc: Shakira Jay OPERATIONS SCHEDULER EXAMINATION: MM SCREENING DIGITAL BREAST TOMOSYNTHESIS, BILATERAL CLINICAL INFORMATION: Screening. Asymptomatic. COMPARISON: Mammography: This study is compared with prior exams dating back to 2021. TECHNIQUE: Digital breast tomosynthesis is performed in both the craniocaudal and mediolateral oblique views along with computer-aided detection (CAD). Synthesized 2D images are generated from the tomosynthesis. FINDINGS: The breasts are extremely dense, which lowers the sensitivity of mammography (ACR BI-RADS breast composition Category d). There are no significant masses, abnormal calcifications, or other abnormalities. There is tissue marker in each breast from prior benign percutaneous biopsy. MM/MM tomosynthesis screening BI IMPRESSION: No mammographic evidence of malignancy. ASSESSMENT: BI-RADS BI-RADS 2 - Benign Findings RECOMMENDATION: Routine annual mammography screening. 1 year F/U This examination should not preclude the clinical evaluation of a suspicious palpable abnormality. This patient's information was entered into a reminder system with a target due date for their next mammogram. Dictated By: Jena Gaona MD Signed By: <Electronically signed by Jena Gaona MD in OV> 09/26/23 0820 DD/ 1120 TD/TT: Completion Manager: Procedure Note Donotuseinterpreter, Image - [facility]/26/2023 [facility] [address] [place] [address] Mammography Report Signed Patient: Radha OgdenVAR#: [id number] : 1985Acct:[id number] Age/Sex: 38 / FADM Date: 08/28/23 Loc: [facility] Attending Dr: Shakira Jay OPERATIONS SCHEDULER Ordering Physician: Shakira Jay FNPResults: 2Beni gn Findings Date of Service: 08/28/23Follow Up: 1 Year From Orig inal Mammogram Procedure(s): MM tomosynthesis screening BI Accession Number(s): [id number] cc: [facility] OPERATIONS SCHEDULER EXAMINATION: MM SCREENING DIGITAL BREAST TOMOSYNTHESIS, BILATERAL CLINICAL INFORMATION: Screening. Asymptomatic. COMPARISON: Mammography: This study is compared with prior exams dating back to 2021. TECHNIQUE: Digital breast tomosynthesis is performed in both the craniocaudal and mediolateral oblique views along with computer-aided detection (CAD). Synthesized 2D images are generated from the tomosynthesis. FINDINGS: The breasts are extremely dense, which lowers the sensitivity of mammography (ACR BI-RADS breast composition Category d). There are no significant masses, abnormal calcifications, or other abnormalities. There is tissue marker in each breast from prior benign percutaneous biopsy. MM/MM tomosynthesis screening BI IMPRESSION: No mammographic evidence of malignancy. ASSESSMENT: BI-RADS BI-RADS 2 - Benign Findings RECOMMENDATION: Routine annual mammography screening. 1 year F/U This examination should not preclude the clinical evaluation of a suspicious palpable abnormality. This patient's information was entered into a reminder system with a target due date for their next mammogram. Dictated By: Jena Gaona MD Signed By: <Electronically signed by Jena Gaona MD in OV> 09/26/23 0820 DD/ 1120 TD/TT: Completion Manager: [facility] OPERATIONS SCHEDULER IMG BI PROCEDURES Edited Resu lt - Final from Last 3 Months or Most Recently Relevant to Health Maintenance Insurance [facility] [place] [address] D[place] OF [place] PARTIAL (MEDICAID) Care Teams Web Offset Press Feeder Relationship Specialty Start Date End Date Shakira Jay FNP [address] [place] [phone] PCP - General Family Medicine 02/16/22
[2024-11-03 18:58] LABS: Appearance Urine Clear; Glucose Urine UA Negative (Negative); PH 6.0 (5.0-9.0); Specific Gravity - Urine >= 1.030 (1.005-1.025); UMIC TRIGGER UACC YES
[2024-11-03 19:14] LABS: UACC Culture Trigger YES
[2024-11-03 19:30] VITALS: BP 132/50; PULSE 46; RESP 16; TEMP 36.7; O2SAT 100
== END 2024-11-03 19:30 | disposition home or self-care (01) ==
PROVIDERS: Emergency Medicine; Physician Assistant Medical; Emergency Provider Emergency Medicine Emergency Medical Services; PCP General Practice
DX: N83.209 Unspecified ovarian cyst, unspecified side (principal); K76.89 Other specified diseases of liver; R10.30 Lower abdominal pain, unspecified; N89.8 Other specified noninflammatory disorders of vagina
CPT/HCPCS: 36415; 74177; 80053; 81001; 84702; 85007; 85027; 85610; 87086; 99284; 99285; Q9967

== ENCOUNTER → 2024-11-03 14:32 | Outpatient (BNV) | payer OTHER, SELFPAY | PROVIDERS: Emergency Provider Emergency Medicine Emergency Medical Services; PCP General Practice; Visit Provider Radiology Diagnostic Radiology | DX: N83.202 Unspecified ovarian cyst, left side (principal) | CPT/HCPCS: 74177 ==

== ENCOUNTER → 2025-01-06 10:42 | Outpatient (BNV) | payer OTHER, SELFPAY | PROVIDERS: PCP Registered Nurse; Visit Provider Radiology Diagnostic Radiology | DX: K76.89 Other specified diseases of liver (principal); N83.202 Unspecified ovarian cyst, left side; M47.816 Spondylosis without myelopathy or radiculopathy, lumbar region | CPT/HCPCS: 74183 ==

== ENCOUNTER 2025-01-06 10:43 | Outpatient (REF) | payer OTHER, SELFPAY ==
--- NOTE | ~2025-01-06 | MR_ITS ---
EXAMINATION: MR ABDOMEN WITHOUT AND WITH CONTRAST CLINICAL INFORMATION: Liver lesion detected on recent CT exam. COMPARISON: Correlated to CT dated November 03, 2024 TECHNIQUE: MR abdomen was performed without and with use of 6.0 mL intravenous [(Gadavist) gadolinium contrast. Postcontrast images are performed in multiphase dynamic sequences. Imaging was performed in 3 planes. No reported immediate complications. FINDINGS: LUNG BASES: No signal abnormality or enhancing mass. LIVER, GALLBLADDER, AND BILIARY TREE: Liver measures 16 cm. There is a 3.5 cm lobulated, well-defined, nonrestricted diffusion, isointense T1 and slightly hyperintense T2 with a hypointense T1 center lesion demonstrated peripheral portal venous phase enhancement and central delayed phase enhancement. Gallbladder is fluid-filled nondistended. No pericholecystic fluid collection or gallbladder wall thickening. No intraluminal signal abnormality. Common bile duct measures 4 mm. PANCREAS: Normal enhancement pattern of the parenchyma. No main pancreatic ductal dilatation. No peripancreatic fluid collection. No enhancing mass. No solid or cystic lesion. SPLEEN: 8 cm. No solid or cystic lesion. ADRENAL GLANDS: No nodular lesion. KIDNEYS AND URETERS: Normal enhancement pattern of the renal parenchyma. No hydronephrosis. No enhancing mass. No dilatation of the ureter. GASTROINTESTINAL TRACT: Abundant stool throughout the large intestine. No intestinal dilatation. No ascites. ABDOMINAL WALL: No gross umbilical hernia. LYMPH NODES: No mesenteric or retroperitoneal lymphadenopathy. VASCULAR: No aneurysm or dissection, abdominal aorta. OSSEOUS STRUCTURES: Decreased signal and height at the intervertebral disc L4-5 and L3-4 level. 5 cm fluid signal characteristic lesion, left adnexa. MR/MR abdomen wo/w con IMPRESSION: 3.5 cm focal nodular hyperplasia, right hepatic lobe. 5 cm cystic lesion, left adnexa. Spondylosis, L4-5 and L3-4. Electronically signed by: Sylvain Rodriguez MD 01/06/2025 11:58 AM EST
--- OUTSIDE RECORDS SUMMARY | 2025-01-06 12:28 | XMS_ITS | Clinical Summary ---
Author Organization [employer] Address [address] [place] [address] [address] [address] Care Team Providers Care Instructional Material Director Name Role Phone Shakira Jay [facility] Primary Care Provider [phone] Allergies No known active allergies Medications cetirizine (ZyrTEC) 10 MG tabletIndication s:Rash and nonspecific skin eruption Take 1 tablet (10 mg) by mouth Once per day. 90 tablet 3 5 03/03/19 26 Active hydrOXYzine HCl (Atarax) 25 MG tabletIndication s:Anxiety Take 1 tablet (25 mg) by mouth if needed at bedtime for anxiety. 90 tablet 1 5 03/03/19 26 Active triamcinolone (Kenalog) 0.1 % ointmentIndicati ons:Rash and nonspecific skin eruption Apply topically 2 times daily. 30 g 5 Active Active Problems Problem Noted Date Diagnosed Date Herpes simplex type 2 infection 01/17/2024 Hives of unknown origin 01/17/2024 MC (molluscum contagiosum) 01/17/2024 Abdominal mass, left lower quadrant 09/06/2023 Constipation 08/11/2023 Early satiety 08/11/2023 Eczema 08/11/2023 Pityriasis rosea 08/11/2023 Encounters Date Type Department Care Team Description 12/31/2024 Telephone [facility] [address] [place] [address] Shakira Jay FNP Letter for School/Work 12/08/2024 Telephone [facility] [address] [place] [address] Shakira Jay FNP pap update 12/05/2024 11:00 AM EDT Office Visit [facility] [address] [place] [address] [facility] Liver lesion, right lobe (Primary Dx); Adnexal cyst; Encounter for immunization; Encounter for screening mammogram for breast cancer 12/05/2024 Travel 12/04/2024 Telephone [facility] [address] [place] [address] [facility] chart prep 11/27/2024 Patient Outreach [facility] [address] [place] [address] [facility] 11/03/2024 Orders Only GENERIC EXTERNAL DATA DEPARTMENT Provider, Generic External Data from Last 3 Months Immunizations Immunization Administration Dates Next Due Influenza Whole 11/04/2020 Influenza, IIV3, injectable 04/29/2019, 6 Influenza, seasonal, injectable, preservative fr ee 12/05/2024,04/29/2019 MMR 09/01/2015 Tdap 09/01/2015 Social History Tobacco Use Types Packs/Day Years Used Date Smoking Tobacco: Never Smokeless Tobacco: Never Tobacco Cessation:Counseling Given: Not Answered Alcohol Use Standard Drinks/Week Comments Never 0 (1 standard drink = 0.6 oz pur e alcohol) Depression Answer Date Recorded Patient Health Questionnaire-9 Score 4 12/05/2024 Patient Health Questionnaire-9 Score 4 12/05/2024 Last PHQ-9: Questionnaire Data Not on file 1 Housing Stability Answer Date Recorded What is your housing situation today? I have adrienne john 12/05/[address] you li ve. Do you have problems with any of the following? None of the above 12/05/2024 Food Insecurity Answer Date Recorded Within the past 12 months, y ou worried that your food would run out before you got money to buy more: Never True 11/27/2024 Within the past 12 months,th e food you bought just didn't last and you didn't have enough money to get more: Never True 03/2024 Transportation Answer Date Recorded In the past 12 months, has l ack of transportation kept you from medical appts, meetings, work or from getting things needed for daily living? No 11/27/2024 Utilities Answer Date Recorded In the past 12 months, has t he electric, gas, oil or water company threatened to shut off services in your home? No 11/27/2024 Depression Answer Date Recorded Patient Health Questionnaire-2 Score 1 12/05/2024 Internet Access Answer Date Recorded Internet Access Q1 Yes 11/27/2024 Internet Access Q2 Not on file 11/27/2024 Comments Unknown Sex and Gender Information Value Date Recorded Sex Assigned at Female 02/02/2022 10:31 AM EST Legal Sex Female 10:29 AM EST Gender Identity Female 02/02/2022 10:31 AM EST Sexual Orientation Straight 02/02/2022 10 :32 AM EST Last Filed Vital Signs Vital Sign Reading Time Taken Comments Blood Pressure 110/78 12/05/2024 10:49 AM EDT Pulse 68 12/05/2024 10:49 AM EDT Temperature 36.4 C (97.6 F) 12/05/2024 10:49 AM EDT Respiratory Rate 12 12/05/2024 10:4 9 AM EDT Oxygen Saturation 99% 03/03/2024 9:10 AM EST Inhaled Oxygen Concentration - - Weight 60.7 kg (133 lb 12.8 oz) 025 10:49 AM EDT Height 167.6 cm (5' 6 ) 12/05/2024 10:4 9 AM EDT Body Mass Index 21.6 12/05/2024 10:49 AM EDT Plan of Treatment Upcoming Encounters Date Type Department Care Team (Late st Contact Info) Description 01/07/2025 9:00 AM EST Office Visit [facility] [address] [place] [address] [facility] [address] [place] [address] 03/03/2025 10:15 AM EST Office Visit [facility] [address] [place] [address] Yasmine العلي Health Maintenance Due Date Last Done Comments HIV Screening 1983 Alcohol/Substance Use Screening 1995 Family Planning (PISQ) 1998 HPV Vaccines (1 - 3-dose series) 1998 Hepatitis C Screening 2001 Hepatitis A Vaccines (1 of 2 - Risk 2-dose series) 2002 Hepatitis B Vaccines (1 of 3 - 19+ 3-dose series) 2002 Mammogram 08/27/2024 08/28/2023 COVID-19 Vaccine (3 - 2024- season) 2024 11/04/2020, 09/20/2020 Dental X-Ray: Bitewings 01/31/2025 01/31/2024 Dental Oral Exam 02/07/2025 08/07/2024, 01/31/2024 Dental Prophylaxis 02/07/2025 08/07/2024, 01/31/2024 DTaP/Tdap/Td Vaccines (2 - Td or Tdap) 08/31/2025 09/01/2015 Depression Screening 12/05/2025 12/05/2024, 12/06/19 25 Disability Screening 12/05/2025 12/05/2024 SDOH Screening 12/05/2025 12/05/2024 Tobacco Screening 12/05/2025 12/05/2024 Pap Smear 01/10/2026 01/10/2023 Dental X-Ray: Full Mouth 01/31/2027 01/31/2024 Cervical Cancer Screening 01/11/2028 HPV/Cotest 01/11/2028 01/10/2023 Zoster Vaccines (1 of 2) 2033 RSV Patients and Patients Aged 60 years or older (1 - 1-dose 75+ series) 2058 Influenza Vaccine Completed 12/05/2024, , 04/29/2019, Additional history exists HIB Vaccines Aged Out No longer eligi [...] Procedure Name Priority Date/Time Associated Diagnosis Comments MR ABDOMEN W AND WO CONTRAST Routine 01/06/2025 11:11 AM EST Liver lesion, right lobe CULTURE, URINE, ROUTINE Routine 11/03/2024 7:15 PM EDT URINALYSIS, COMPLETE, WITH REFLEX TO CULTURE Routine 11/03/2024 6:[address] ABDOMEN PELVIS W CONTRAST Routine 11/03/2024 6:33 PM EDT PATHOLOGIST REVIEW - CBC Routine 11/03/2024 12:19 PM EDT HCG, TOTAL, QN Routine 11/03/2024 12:19 PM EDT COMPLETE BLOOD COUNT MAN DIF Routine 11/03/2024 12:19 PM EDT COMPREHENSIVE METABOLIC PANEL Routine 11/03/2024 12:19 PM EDT PROTHROMBIN TIME-INR Routine 11/03/2024 12:19 PM EDT CBC WITH AUTO DIFFERENTIAL Routine 11/03/2024 12:19 PM EDT PROPHYLAXIS - ADULT Routine 08/07/2024 8 :00 AM EDT Dental calculus Dental plaque PERIODIC ORAL EVALUATION - ESTABLISHED PATIENT Routine 08/07/2024 8:00 AM EDT INTRAORAL - COMPLETE SERIES OF RADIOGRAPHIC IMAGES Routine 01/31/2024 8:00 AM EST BI MAMMOGRAM SCREENING TOMOSYNTHESIS BILATERAL Routine 08/28/2023 11:20 AM EDT Screening mammogram for breast cancer HM PAP/HPV Routine 01/10/2023 from Last 3 Months or Most Recently Relevant to Health Maintenance Results * MR Abdomen w/ and w/o Contrast (01/06/2025 11:11 AM EST) Anatomical Region Laterality Modality Abdomen Magnetic Resonan ce 01/06/2025 11:1 1 AM EST Narrative 01/06/2025 12:00 PM EST [address] [address] Magnetic Resonance Report Signed Patient: Prabhjot Ogden MR#: [id number] 708 : 1985 Acct:[id number] Age/Sex: 39 / F ADM Date: 01/06/25 Loc: HO.MRI Attending Dr: Shakira HAMILTON Ordering Physician: Shakira Jay Date of Service: 01/06/25 Procedure(s): MR abdomen wo/w con Accession Number(s): [id number] cc: Shakira Jay Reason for Exam: Further characterization of liver lesion right lobe seen on recent CT scan EXAMINATION: MR ABDOMEN WITHOUT AND WITH CONTRAST CLINICAL INFORMATION: Liver lesion detected on recent CT exam. COMPARISON: Correlated to CT dated November 03, 2024 TECHNIQUE: MR abdomen was performed without and with use of 6.0 mL intravenous [(Gadavist) gadolinium contrast. Postcontrast images are performed in multiphase dynamic sequences. Imaging was performed in 3 planes. No reported immediate complications. FINDINGS: LUNG BASES: No signal abnormality or enhancing mass. LIVER, GALLBLADDER, AND BILIARY TREE: Liver measures 16 cm. There is a 3.5 cm lobulated, well-defined, nonrestricted diffusion, isointense T1 and slightly hyperintense T2 with a hypointense T1 center lesion demonstrated peripheral portal venous phase enhancement and central delayed phase enhancement. Gallbladder is fluid-filled nondistended. No pericholecystic fluid collection or gallbladder wall thickening. No intraluminal signal abnormality. Common bile duct measures 4 mm. PANCREAS: Normal enhancement pattern of the parenchyma. No main pancreatic ductal dilatation. No peripancreatic fluid collection. No enhancing mass. No solid or cystic lesion. SPLEEN: 8 cm. No solid or cystic lesion. ADRENAL GLANDS: No nodular lesion. KIDNEYS AND URETERS: Normal enhancement pattern of the renal parenchyma. No hydronephrosis. No enhancing mass. No dilatation of the ureter. GASTROINTESTINAL TRACT: Abundant stool throughout the large intestine. No intestinal dilatation. No ascites. ABDOMINAL WALL: No gross umbilical hernia. LYMPH NODES: No mesenteric or retroperitoneal lymphadenopathy. VASCULAR: No aneurysm or dissection, abdominal aorta. OSSEOUS STRUCTURES: Decreased signal and height at the intervertebral disc L4-5 and L3-4 level. 5 cm fluid signal characteristic lesion, left adnexa. MR/MR abdomen wo/w con IMPRESSION: 3.5 cm focal nodular hyperplasia, right hepatic lobe. 5 cm cystic lesion, left adnexa. Spondylosis, L4-5 and L3-4. Electronically signed by: Sylvain Rodriguez MD 01/06/2025 11:58 AM EST Dictated By: Sylvain Whittington MD Signed By: <Electronically signed by Sylvain Nuñez MD in OV> 01/06/25 1158 DD/ 1111 TD/TT: 01/06/25 1130 Insurance Account Specialist: Procedure Note Donotuseinterpreter, Image - 01/06/2025 [place] [address] Magnetic Resonance Report Signed [id number] 708 : 1985Acct:[id number] Age/Sex: 39 / FADM Date: 01/06/25 Loc: HO.MRI Attending Dr: Shakira Jay ROTARY DRYER OPERATOR Ordering Physician: Shakira Jay Date of Service: 01/06/25 Procedure(s): MR abdomen wo/w con Accession Number(s): [id number] cc: Shakira Jay Reason for Exam: Further characterization of liver lesion right lobe seenon recent CT scan EXAMINATION: MR ABDOMEN WITHOUT AND WITH CONTRAST CLINICAL INFORMATION: Liver lesion detected on recent CT exam. COMPARISON: Correlated to CT dated November 03, 2024 TECHNIQUE: MR abdomen was performed without and with use of 6.0 mL intravenous [(Gadavist) gadolinium contrast. Postcontrast images are performed in multiphase dynamic sequences. Imaging was performed in 3 planes. No reported immediate complications. FINDINGS: LUNG BASES: No signal abnormality or enhancing mass. LIVER, GALLBLADDER, AND BILIARY TREE: Liver measures 16 cm. There is a 3.5 cm lobulated, well-defined, nonrestricted diffusion, isointense T1 and slightly hyperintense T2 with a hypointense T1 center lesion demonstrated peripheral portal venous phase enhancement and central delayed phase enhancement. Gallbladder is fluid-filled nondistended. No pericholecystic fluid collection or gallbladder wall thickening. No intraluminal signal abnormality. Common bile duct measures 4 mm. PANCREAS: Normal enhancement pattern of the parenchyma. No main pancreatic ductal dilatation. No peripancreatic fluid collection. No enhancing mass. No solid or cystic lesion. SPLEEN: 8 cm. No solid or cystic lesion. ADRENAL GLANDS: No nodular lesion. KIDNEYS AND URETERS: Normal enhancement pattern of the renal parenchyma. No hydronephrosis. No enhancing mass. No dilatation of the ureter. GASTROINTESTINAL TRACT: Abundant stool throughout the large intestine. No intestinal dilatation. No ascites. ABDOMINAL WALL: No gross umbilical hernia. LYMPH NODES: No mesenteric or retroperitoneal lymphadenopathy. VASCULAR: No aneurysm or dissection, abdominal aorta. OSSEOUS STRUCTURES: Decreased signal and height at the intervertebral disc L4-5 and L3-4 level. 5 cm fluid signal characteristic lesion, left adnexa. MR/MR abdomen wo/w con IMPRESSION: 3.5 cm focal nodular hyperplasia, right hepatic lobe. 5 cm cystic lesion, left adnexa. Spondylosis, L4-5 and L3-4. Electronically signed by: Sylvain Rodriguez MD 01/06/2025 11:58 AM EST Dictated By: Sylvain Whittington MD Signed By: <Electronically signed by Sylvain Nuñez MDin OV> 01/06/25 1158 DD/ 1111 TD/TT: 01/06/25 1130 Insurance Account Specialist: [facility] IM MRI PROCEDURES Edited Res ult - Final * Culture, Urine, Routine (11/03/2024 7:15 PM EDT) Urine Urine specimen obtained by clean catch procedure / Unknown 11/03/2024 7:15 PM EDT 11/03/2024 7:15 PM EDT Comment:[facility] - 11/05/2024 8:51 AM EDT Urine Culture Report Result Urine Culture 10,000 to 50,000 cfu/ml Urine Culture Mixed bacterial samir characteristic of Urine Culture urogenital contamination. Specimen Source: Urine clean catch Generic External Data Provider LAB MICROBIOLOGY - GENERAL ORDERABLES Final Result [facility] [address] [place] [address] [phone] * (ABNORMAL) Urinalysis, Complete, with Reflex to Culture (11/03/2024 6:40 PM EDT) Color Urine Yellow [facility] Appearance Urine Clear [facility] PH 6.0 5.0 - 9.0 [facility] Glucose Urine UA Negative Negative mg/dL [facility] Urine Blood Moderate (2+)(A) Negative [facility] Specific [place] - Urine >=1.030(H) 1.005 - 1.025 [facility] Urine Protein Negative Neg-Trace mg/dL [facility] Urine Ketones Negative Negative mg/dL [facility] Nitrite Urine Negative Negative [facility] Leukocyte Esterase Urine Small (1+)(A) Negative [facility] RBC Urine 3-5(A) 0 - 2 /HPF [facility] Urine WBC 11-20(A) 0 - 5 /HPF [facility] Urine Squamous Epithelial Cell 6-10 0 - 2 /HPF [facility] Urine Bacteria None Seen None Seen [facility] Hyaline Casts, Urine 0-2 0 - 2 /LPF [facility] 11/03/2024 6:40 PM EDT 11/03/2024 6:54 PM EDT Narrative [facility] - 11/03/2024 7:15 PM EDT [id number], Clean Catch us Generic External Data Provider LAB URINE ORDERAB LES Final Result Performing Organization Address [facility]/ZIP Co de Phone Number [facility] [address] [place] [address] [phone] * CT Abdomen Pelvis w/ Contrast (11/03/2024 6:33 PM EDT) Anatomical Region Laterality Modality Body, Pelvis, Abdomen Computed T omography 11/03/2024 6:33 PM EDT Narrative 11/03/2024 6:34 PM EDT [address] [address] [address] Scan Report Signed Patient: Prabhjot Ogden MR#: [id number] 708 : 1985 Acct:[id number] Age/Sex: 39 / F ADM Date: 11/03/24 Loc: HO.ED Attending Dr: Ordering Physician: Rocky Bolivar DO Date of Service: 11/03/24 Procedure(s): CT abdomen pelvis w IV con Accession Number(s): [id number] cc: Natalie Kerr; Rocky Bolivar DO Report Number: [id number]: Total DLP = 336.00 mGy-cm Reason for Exam: ? post op complication? uterus sx in [place] CLINICAL HISTORY: ? post op complication? uterus sx in [place] --- Additional Notes or Special Instructions: NEED PREG CT of the abdomen and pelvis utilizing intravenous contrast. No comparison. Findings: In the right hepatic lobe there is a small ill-defined hypodensity that is technically indeterminate. The gallbladder is unremarkable. No hydronephrosis. The spleen and pancreas are unremarkable. No abdominal aortic aneurysm. No diverticulitis is identified. Suspect previous appendectomy. There is no bowel obstruction. There is mild left-sided colonic wall thickening. The bladder is mildly distended. There are operative changes of the lower anterior abdominal wall. Hysterectomy. There is a small amount of free fluid in the pelvis. 3.7 cm left adnexal cyst is presumably in the ovary. There is moderate stool in the rectosigmoid. Impression: Small amount of free fluid in the pelvis. Left adnexal cyst likely physiologic. No definite abscess is seen at this time. Follow-up as clinically warranted. There is mild colonic wall thickening raising the possibility of colitis. Ill-defined hypodensity in the right hepatic lobes. This is likely associated with a subtle hepatic mass. Recommend comparison to prior imaging or further evaluation with MR nonemergent basis. This document has been electronically signed by: Chriss Johnson MD on 11/03/2024 18:33:27 Dictated By: Landry Alvarado MD Signed By: <Electronically signed by Landry Alvarado MD in OV> 11/03/24 1833 DD/ 183 TD/TT: 11/03/241832 Insurance Account Specialist: Procedure Note Fernyolyapabloter, Image - 11/03/[address] [address] [address] Scan Report Signed Patient: Kyra Ogden#: [id number] 708 : 1985Acct:[id number] Age/Sex: 39 / FADM Date: 11/03/24 Loc: HO.ED Attending Dr: Ordering Physician: Rocky Bolivar DO Date of Service: 11/03/24 Procedure(s): CT abdomen pelvis w IV con Accession Number(s): [id number] cc: Natalie Kerr; Rocky Bolivar DO Report Number: [id number]: Total DLP = 336.00 mGy-cm Reason for Exam: ? post op complication? uterus sx in [place] CLINICAL HISTORY: ? post op complication? uterus sx in [place] ---Additional Notes or Special Instructions: NEED PREG CT of the abdomen and pelvis utilizing intravenous contrast. No comparison. Findings: In the right hepatic lobe there is a small ill-defined hypodensity that is technically indeterminate. The gallbladder is unremarkable. No hydronephrosis. The spleen and pancreas are unremarkable. No abdominal aortic aneurysm. No diverticulitis is identified. Suspect previous appendectomy. There is no bowel obstruction. There is mild left-sided colonic wall thickening. The bladder is mildly distended. There are operative changes of the lower anterior abdominal wall. Hysterectomy. There is a small amount of free fluid in the pelvis. 3.7 cm left adnexal cyst is presumably in the ovary. There is moderate stool in the rectosigmoid. Impression: Small amount of free fluid in the pelvis. Left adnexal cyst likely physiologic. No definite abscess is seen at this time. Follow-up as clinically warranted. There is mild colonic wall thickening raising the possibility of colitis. Ill-defined hypodensity in the right hepatic lobes. This is likely associated with a subtle hepatic mass. Recommend comparison to prior imaging or further evaluation with MR nonemergent basis. 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,occasional target cells, schistocytes and acanthocytes:consider iron deficiency, dehydration, hemoglobinopathy andliver disease.Reviewed by Saundra Castañeda MD 11/03/2024 12:1 9 PM EDT 11/03/2024 12:22 PM EDT Generic External Data Provider LAB BLOOD ORDERAB LES Final Result [facility] [address] [place] [phone] * (ABNORMAL) Complete Blood Count Manual Diff (11/03/2024 12:19 PM EDT) White Blood Count 5.2 4.8 - 10.8 X10*3/uL [facility] Red Blood Count 5.63(H) 4.20 - 5.50 X10*6/uL [facility] Hemoglobin 11.9(L) 12.0 - 16.0 g/dl [facility] Hematocrit 39.6 37.0 - 47.0 % [facility] Mean Corpuscular Volume 70.3(L) 80.0 - 98.0 fL [facility] Mean Corpuscular Hemoglobin 21.1(L) 27.0 - 33.0 pg [facility] Mean Corpuscular HGB Conc 30.1(L) 31.0 - 35.0 g/dl [facility] Red Cell Distribution Width 29.1(H) 11.0 - 16.0 % [facility] Platelet Count 267 160 - 400 X10*3/uL [facility] Mean Platelet Volume TNP 9.4 - 12.3 fL [facility] NRBC Pct Auto 0.0 0.0 - 0.2 /100WBC [facility] NRBC Abs Auto 0.000 0.0 - 0.012 X10*3/uL [facility] Neutrophils % Manual 66 45 - 73 % [facility] Band Neutrophils Percent 0(L) 3 - 5 % [facility] Lymphocytes Percent Manual 23 20 - 40 % [facility] Atypical Lymphs Percent Manual 1 0 - 6 % [facility] Monocytes Percent Manual 6 2 - 11 % [facility] EOSINOPHILS % MANUAL 4 0 - 4 % [facility] NEUTROPHILS ABSOLUTE MANUAL 3.4 2.0 - 8.3 X10*3/uL [facility] LYMPHOCYTES ABSOLUTE MANUAL 1.2 1.2 - 4.9 X10*3/uL [facility] Atypical Lymph Absolute Manual 0.1 x10*3/uL [facility] MONOCYTES ABSOLUTE MANUAL 0.3 0.1 - 1.2 X10*3/uL [facility] EOSINOPHILS ABSOLUTE MANUAL 0.2 0.0 - 0.4 X10*3/uL [facility] Platelet Estimate NORMAL NORMAL [facility] Platelet Morphology Comment NORMAL [facility] RBC Morphology NOTED [facility] Hypochromasia 1+ (5-14) /OIF [facility] Microcytosis 2+ (15-30) /[facility] Target Cells 1+ (5-14) /[facility] Toxic Vacuolation PRESENT [facility] Acanthocytes 2+ (3-5) /[facility] 11/03/2024 12:1 9 PM EDT 11/03/2024 12:22 PM EDT us Generic External Data Provider LAB BLOOD ORDERAB LES Final Result Performing Organization Address [facility] Co de Phone Number [facility] [address] [place] [phone] * Prothrombin Time-INR (11/03/2024 12:19 PM EDT) Prothrombin Time 11.4 10.9 - 12.4 SEC [facility] INTERNATIONAL NORM RATIO 1.0 0.9 - 1.1 [facility] Comment:INTERNATIONAL NORMAL IZED RATIO (INR) [...] ORDERAB LES Final Result Performing Organization Address [facility] Co de Phone Number [facility] [address] [place] [phone] * hCG, Total, Quantitative (11/03/2024 12:19 PM EDT) HCG Quantitative <2 mIU/mL [facility] Comment:Weeks post LMP Appro ximate hCG(Last Menstrual Period) Range (mIU/ml)3 - 4 weeks 9 - 1304 - 5 weeks 75 - 2,6005 - 6 weeks 850 - 20,8006 - 7 weeks 4000 - 100,2007 - 12 weeks 11,500 - 289,54243 - 16 weeks 18,300 - 137,76761 - 29 weeks (2nd trimester) 1,400 - 53,63164 - 41 weeks (3rd trimester) 940 - [...] Provider LAB BLOOD ORDERAB LES Final Result [facility] [address] [place] [phone] * (ABNORMAL) Comprehensive Metabolic Panel (11/03/2024 12:19 PM EDT) Sodium 141 135 - 145 mmol/L [facility] Potassium 3.6 3.3 - 5.1 mmol/L [facility] Chloride 106 96 - 108 mmol/L [facility] Carbon Dioxide 27 22 - 29 mmol/L [facility] Anion Gap 12 12 - 20 [facility] Urea Nitrogen (BUN) 11 9 - 16 mg/dL [facility] Creatinine, Serum 0.76 0.5 - 1.4 mg/dL [facility] Creatinine Clr Calc [facility] Comment:Provided height and weight: 167.64 cm,58.3 kg.eGFR (calculated from the MDRD study equation) and eCrCl(calculated from the Cockcroft-Gault equation) are based ondifferent parameters and may not yield comparable results.If eCrCl result is absurd, please check patient'sheight/weight. Estimated Glomerular Filt Rate >60 [facility] Comment:Chronic Kidney Disea se: Estimated GFR < 60 mL/min/1.81q5Hakovd Kidney Disease: Estimated GFR < 15 mL/min/1.73m2 Glucose 75 60 - 115 mg/dL [facility] Calcium 9.2 8.4 - 10.2 mg/dL [facility] Bilirubin, Total 0.3 0.0 - 1.0 mg/dL [facility] Aspartate Amino Transferase 26 5 - 31 U/L [facility] Alanine Aminotransferase 27 0 - 31 U/L [facility] Total Protein 8.2(H) 6.5 - 8.0 g/dL [facility] Albumin Level 4.5 3.5 - 5.0 g/dL [facility] Alkaline Phosphatase 91 39 - 117 U/L [facility] 11/03/2024 12:1 9 PM EDT 11/03/2024 12:22 PM EDT us Generic External Data Provider LAB BLOOD ORDERAB LES Final Result [facility] [address] [place] [address] [phone] * BI Mammogram Screening Tomosynthesis Bilateral (08/28/2023 11:20 AM EDT) Anatomical Region Laterality Modality Breast Bilateral Mammography 08/28/2023 11:2 0 AM EDT Narrative 09/26/2023 8:25 AM EDT [facility] [address] [place] [address] Mammography Report Signed Patient: Prabhjot Ogden MR#: [id number] 708 : 1985 Acct:[id number] Age/Sex: 38 / F ADM Date: 08/28/23 Loc: HO.MAMMO Attending Dr: Shakira Jay ROTARY DRYER OPERATOR Ordering Physician: Shakira Jay ROTARY DRYER OPERATOR Results: 2Beni gn Findings Date of Service: 08/28/23 Follow Up: 1 Year From [facility] Mamm[facility] Procedure(s): MM tomosynthesis screening BI Accession Number(s): [id number] cc: Shakira Jay ROTARY DRYER OPERATOR EXAMINATION: MM SCREENING DIGITAL BREAST TOMOSYNTHESIS, BILATERAL [...] in OV> 09/26/23 0820 DD/ 1120 TD/TT: Insurance Account Specialist: Procedure Note Donotuseinterpreter, Image - 09/26/2023 [facility] [address] [place] [address] Mammography Report Signed [facility]: [id number] 708 : 1985Acct:[id number] Age/Sex: 38 / FADM Date: 08/28/23 Loc: MAMMO Attending Dr: Shakira Jay ROTARY DRYER OPERATOR Ordering Physician: Shakira Jay FNPResults: 2Beni gn Findings Date of Service: 08/28/23Follow Up: 1 Year From Orig ina Mammogram Procedure(s): MM tomosynthesis screening BI Accession Number(s): [id number] cc: Shakira Jay ROTARY DRYER OPERATOR EXAMINATION: MM SCREENING DIGITAL BREAST TOMOSYNTHESIS, BILATERAL [...] in OV> 09/26/23 0820 DD/ 1120 TD/TT: Insurance Account Specialist: [facility] ROTARY DRYER OPERATOR IMG BI PROCEDURES Edited Resu lt - Final * PAP/HPV (01/10/2023) Pap Smear 1. NILM 1. NILM Comment:5 year follow up HPV Not Detected Undetected, Indeterminat e, Quantitative , Not Detected Comment:5 year follow up Historical Provider HEALTH MAINTENANCE Edited Result - Final from Last 3 Months or Most Recently Relevant to Health Maintenance Insurance [address] DENTAL [facility]3] DENTAL - HSN PARTIAL (MEDICAID) Care Teams Instructional Material Director Relationship Specialty Start Date End Date Shakira Jay FNP [address] [place] [address] PCP - General Family Medicine 02/16/22
--- OUTSIDE RECORDS SUMMARY | 2025-01-06 12:29 | XMS_ITS | Patient Health Record ---
Author Organization [facility] [place] Address [address] [facility] [place] [address] Care Team Providers Care Gas Distribution Plant Operator Name Role Phone Javier Donaldson Unavailable [phone] Allergies No Known Allergies Reason For Referral [...] Status Risk Notes Problem Acquired hallux valgus (92206297) Hallux valgus (acquired), left foot (M20.12) Active confirmed Plan Of Treatment No Information Insurance Providers Payer Name Payer Address Payer Phone Subscriber Number Group Number Insured Name Patient Relationship to Insured Coverage Start Date Coverage End Date Family Health Plan [address] [place] [id number] Prabhjot Ogden Self - patient is the insured Medical (General) History Surgical History Surgery Date(Month/Year)
== END 2025-01-06 10:44 | disposition home or self-care (01) ==
LOC: HO.MRI 10:43
PROVIDERS: PCP Registered Nurse; Visit Provider Registered Nurse
DX: K76.0 Fatty (change of) liver, not elsewhere classified (principal)
CPT/HCPCS: 74183; A9585

== ENCOUNTER 2025-02-25 10:06 | Outpatient (REF) | payer OTHER, SELFPAY ==
--- NOTE | ~2025-02-25 | US_ITS ---
EXAMINATION: US PELVIS TRANSABDOMINAL AND TRANSVAGINAL HISTORY: 39 y.o F s/p hysterectomy with question of left adnexal cyst COMPARISON: Correlation is made with a CT of the pelvis dated 11/03/2024. TECHNIQUE: Transabdominal and endovaginal real-time 2D de-scale ultrasound was performed. FINDINGS: Uterus: The uterus is surgically absent. Right ovary: The right ovary measures 2.7 x 2.6 x 2.7 cm. There is a complex appearing hypoechoic structure measuring 1.8 x 1.8 x 1.7 cm which demonstrates low-level internal echoes. Left ovary: The left ovary measures 3.4 x 3.3 x 3.8 cm. There is a complex appearing hypoechoic structure with low-level internal echoes measuring 2.3 x 2.2 x 2.2 cm. There is an additional 1.1 x 1.9 x 1.4 cm cyst which demonstrates mild wall thickening. Pelvic fluid: There is free fluid in both adnexal regions.. US/US pelvic and transvaginal IMPRESSION: Complex appearing hypoechoic structures with low-level internal echoes in both adnexal regions which may represent hemorrhagic cysts. Follow-up is recommended to document resolution. Electronically signed by: Sam Banegas MD 02/25/2025 11:28 AM [facility] [place]
--- OUTSIDE RECORDS SUMMARY | 2025-02-25 11:07 | XMS_ITS | Encounter Summary ---
Author Organization [employer] Address [address] [place] [address] [place], [place] [address] Care Team Providers Care Health Policy Analyst Name Role Phone [facility] Primary Care Provider [phone] Reason for Visit * Reason Onset Date Comments Referral 02/23/2025 Encounter Details Date Type Department Care Team ([facility] st Contact Info) Description 02/23/2025 Telephone [facility] MEDICINE [address] [place], [place] [phone] [facility] [address] [place], [place] [phone] Referral Social History Tobacco Use Types Packs/Day Years [...] AM EST documented as of this encounter Miscellaneous Notes * Telephone Encounter - Libra Albarran RN - 02/23/2025 4:43 PM EST TC placed to [phone] in regards to below message. Patient provided verbal permission for RN tospeak to . reports the patient presented for a mammo however they did not complete the mammo d/t the patient reporting a new lump x1 week on R breast. Rn scheduled patient for an appointment on 02/25/25 at 11:15am to have lump evaluated and appropriate diagnostic imagining ordered. Sp ouse agreed to appointment date and time. Spouse to f/u PRN. * Telephone Encounter - Elvin Quinteros - 02/23/2025 9:47 AM EST Tc from pt reporting that pt went to her Mammogram apt but since there is a new lump, pt was not seen. [facility] radiology reported for pt to get an MRI and then a Mammo gram. Any questions contact pt at [phone] documented in this encounter Plan of Treatment Upcoming Encounters Date Type Department Care Team (Late st Contact Info) Description 03/03/2025 10:15 AM EST Office Visit [facility] ADULT DENTAL [address] [place] [address] Yasmine العلي 03/03/2025 12:00 PM EST Office Visit [facility] MEDICINE [address] [place] [address] Ginny An DO [address] [place] [address] 03/13/2025 9:15 AM EST Office Visit [facility] MEDICINE [address] [place] [address] Shakira Jay FNP [address] [place] [address] 07/02/2025 9:30 AM EDT Office Visit [facility] OPTOMETRY [address] [place] [address] Yasemin Scott, JUANJO [address] [place] [address] documented as of this encounter Visit Diagnoses Not on filedocumented in this encounter Additional Health Concerns Assessment Noted Time PHQ-9 Depression Total Score: 4 12/06/19 25 10:59 AM EDT documented as of this encounter Care Teams Health Policy Analyst Relationship Specialty Start Date End Date Shakira Jay FNP [address] [place] [address] PCP - General Family Medicine 02/16/22 documented as of this encounter
--- OUTSIDE RECORDS SUMMARY | 2025-02-25 11:07 | XMS_ITS | Encounter Summary ---
Author Organization [employer] Address [address] [facility] 7t [place] [address] Care Team Providers Care Ammonia Box Tender Name Role Phone [facility] Primary Care Provider [phone] Encounter Details Date Type Department Care Team ([facility] st Contact Info) Description 01/09/2025 Results Follow-Up [facility] [address] [place], [place] [phone] [facility] [address] [place], [place] [phone] MR Abdomen w/ and w/o Contrast Social History Tobacco Use Types Packs/Day Years [...] Description 03/03/2025 10:15 AM EST Office Visit [facility] ADULT DENTAL [address] [place] [address] Yasmine العلي 03/03/2025 12:00 PM EST Office Visit [facility] MEDICINE [address] [place] [address] Ginny An DO [address] [place] [address] 03/13/2025 9:15 AM EST Office Visit [facility] MEDICINE [address] [place] [address] Shakira Jay FNP [address] [place] [address] 07/02/2025 9:30 AM EDT Office Visit [facility] OPTOMETRY [address] [place] [address] Yasemin Scott, OD [address] [place] [address] documented as of this encounter Visit Diagnoses Not on filedocumented in this encounter Additional Health Concerns Assessment Noted Time PHQ-9 Depression Total Score: 4 12/06/19 25 10:59 AM EDT documented as of this encounter Care Teams Ammonia Box Tender Relationship Specialty Start Date End Date Shakira Jay FNP [address] [place] [address] PCP - General Family Medicine 02/16/22 documented as of this encounter
--- OUTSIDE RECORDS SUMMARY | 2025-02-25 11:07 | XMS_ITS | Patient Health Record ---
Author Organization [facility] [place] Address [address] [facility] [place] [address] Care Team Providers Care Public Weigher Name Role Phone Javier Donaldson Unavailable [phone] Allergies No Known Allergies Reason For Referral [...] Status Risk Notes Problem Acquired hallux valgus ([id number]) Hallux valgus (acquired), left foot (M20.12) Active confirmed Plan Of Treatment No Information Insurance Providers Payer Name Payer Address Payer Phone Subscriber Number Group Number Insured Name Patient Relationship to Insured Coverage Start Date Coverage End Date Family Health Plan [address] [place] [id number] Prabhjot Ogden Self - patient is the insured Medical (General) History Surgical History Surgery Date(Month/Year)
--- OUTSIDE RECORDS SUMMARY | 2025-02-25 11:07 | XMS_ITS | Clinical Summary ---
Author Organization [employer] Address [address] [facility] 7t [place] [address] Care Team Providers Care Cushion Spring Assembler Name Role Phone Shakira Jay [facility] Primary Care Provider [phone] Allergies No known active allergies Medications cetirizine [...] 2 times daily. 30 g 5 Active acetaminophen (Tylenol Extra Strength) 500 MG tabletIndication s:Pelvic pain Take 2 tablets (1,000 mg) by mouth every 6 (six) hours if needed for moderate pain. 30 tablet 01/07/2025 10:15 AM EST 5 01/08/20 26 Active ibuprofen 600 MG tabletIndication s:Pelvic pain Take 1 tablet (600 mg) by mouth every 6 (six) hours if needed for moderate pain. 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 Hives of unknown origin 01/17/2024 MC (molluscum contagiosum) 01/17/2024 Abdominal mass, left lower quadrant 09/06/2023 Constipation 08/11/2023 Early satiety 08/11/2023 Eczema 08/11/2023 Pityriasis rosea 08/11/2023 Encounters Date Type Department Care Team Description 02/24/2025 Telephone [facility] [place] [address] Shakira Jay FNP Appointment Request 02/23/2025 Telephone [facility] [place] [address] Shakira Jay FNP Referral 02/16/2025 Travel 01/09/2025 Orders Only [facility] [address] Shakira Jay FNP Complex cyst of uterine adnexa (Primary Dx) 01/09/2025 Results Follow-Up [facility] [address] Shakira Jay FNP MR Abdomen w/ and w/o Contrast 01/07/2025 9:00 AM EST Office Visit [facility] [place] [place] [address] Shakira Jay FNP Pelvic pain (Primary Dx); Liver lesion, right lobe; Adnexal cyst 01/07/2025 Travel 01/06/2025 Telephone [facility] [place] [address] Shakira Jay FNP chart prep 12/31/2024 Telephone [facility] [place] [address] Shakira Jay FNP Letter for School/Work 12/08/2024 Telephone [facility] [place] [address] Shakira Jay FNP pap update 12/05/2024 11:00 AM EDT Office Visit [facility] [place] [address] Shakira Jay FNP Liver lesion, right lobe (Primary Dx); Adnexal cyst; Encounter for immunization; Encounter for screening mammogram for breast cancer 12/05/2024 Travel 12/04/2024 Telephone [facility] [place] [address] Shakira Jay FNP chart prep 11/27/2024 Patient Outreach [facility] MED[facility] [address] [place] [address] [place], Shakira, COMPLEX CARE NURSE PRACTITIONER from Last 3 Months Immunizations Immunization Administration [...] Sign Reading Time Taken Comments Blood Pressure 118/78 01/07/2025 9:03 AM EST Pulse 88 01/07/2025 9:03 AM EST Temperature 36.3 C (97.3 F) 01/07/2025 9:03 AM EST Respiratory Rate 18 01/07/2025 9:03 AM EST Oxygen Saturation 99% 03/03/2024 9:10 AM EST Inhaled Oxygen Concentration - - Weight 61.1 kg (134 lb 9.6 oz) 01/07/2025 9:03 A M EST Height 167.6 cm (5' 6 ) 01/07/2025 9:03 AM EST Body Mass Index 21.73 01/07/2025 9:03 AM EST Plan of Treatment Upcoming Encounters Date Type Department Care Team (Late st Contact Info) Description 03/03/2025 10:15 AM EST Office Visit [facility] ADULT DENTAL [address] [place] [address] Yasmine العلي 03/03/2025 12:00 PM EST Office Visit [facility] MEDICINE [address] [place] [address] Ginny An DO [address] [place] [address] 03/13/2025 9:15 AM EST Office Visit [facility] MEDICINE [address] [place] [address] [place], Shakira, COMPLEX CARE NURSE PRACTITIONER [address] [place] [address] 07/02/2025 9:30 AM EDT Office Visit [facility] OPTOMETRY [address] [place] [address] Yasemin Scott, OD [address] [place] [address] Health Maintenance Due Date Last Done Comments [...] 12/05/2024 SDOH Screening 12/05/2025 12/05/2024 Tobacco Screening 01/08/2026 01/08/2025 Pap Smear 01/10/2026 01/10/2023 Dental X-Ray: Full Mouth 01/31/2027 024, 07/05/2023, 12/06/2022 Cervical Cancer Screening 01/11/2028 HPV/Cotest 01/11/2028 01/10/2023 [...] 11:11 AM EST Liver lesion, right lobe PROPHYLAXIS - ADULT Routine 08/07/2024 8 :00 [...] AM EST Narrative 01/06/2025 12:00 PM EST [place] [address] Magnetic Resonance Report Signed Patient: Prabhjot Ogden MR#: [id number] 708 : 1985 Acct:[id number] Age/Sex: 39 / F ADM Date: 01/06/25 Loc: HO.MRI Attending Dr: Shakira HAMILTON Ordering Physician: Shakira Jay Date of Service: 01/06/25 Procedure(s): MR abdomen wo/w con Accession Number(s): [id number] cc: Shakira Jay Reason for Exam: Further [...] 01/06/25 1158 DD/ 1111 TD/TT: 01/06/25 1130 Loss Control Consultant: Procedure Note Donotuseinterpreter, Image - 01/06/2025 [place] [address] Magnetic Resonance Report Signed [id number] 708 : 1985Acct:[id number] Age/Sex: 39 / FADM Date: 01/06/25 Loc: HO.MRI Attending Dr: Shakira HAMILTON Ordering Physician: Shakira Jay Date of Service: 01/06/25 Procedure(s): MR abdomen wo/w con Accession Number(s): [id number] cc: Shakira Jay Reason for Exam: Further [...] Sylvain Rodriguez MD 01/06/2025 11:58 AM EST RP Dictated By: Sylvain Whittington MD Signed By: <Electronically signed by Sylvain Nuñez MDin OV> 01/06/25 1158 DD/ 1111 TD/TT: 01/06/25 1130 Loss Control Consultant: [facility] COMPLEX CARE NURSE PRACTITIONER IMG MRI PROCEDURES Edited Res ult - Final * BI Mammogram Screening Tomosynthesis Bilateral (08/28/2023 11:20 AM EDT) Anatomical Region Laterality Modality Breast Bilateral Mammography 08/28/2023 11:2 0 AM EDT Narrative 09/26/2023 8:25 AM EDT [facility] [place] [address] Mammography Report Signed Patient: Prabhjot Ogden MR#: [id number] 708 : 1985 Acct:[id number] Age/Sex: 38 / F ADM Date: 08/28/23 Loc: HO.MAMMO Attending Dr: Shakira Jay COMPLEX CARE NURSE PRACTITIONER Ordering Physician: Shakira Jay Results: 2Beni gn Findings Date of Service: 08/28/23 Follow Up: 1 Year From [facility] Mammogram Procedure(s): MM tomosynthesis screening BI Accession Number(s): [id number] cc: Shakira Jay EXAMINATION: MM SCREENING DIGITAL BREAST TOMOSYNTHESIS, BILATERAL [...] in OV> 09/26/23 0820 DD/ 1120 TD/TT: Loss Control Consultant: Procedure Note Donotuseinterpreter, Image - 09/26/2023 [facility]'s [address] [place] [address] Mammography Report Signed Patient: Radha OgdenNJEmeka#: [id number] 708 : 1985Acct:[id number] Age/Sex: 38 / FADM Date: 08/28/23 Loc: LEONARDO Attending Dr: Shakira Jay COMPLEX CARE NURSE PRACTITIONER Ordering Physician: Shakira Jay FNPResults: 2Beni gn Findings Date of Service: 08/28/23Follow Up: 1 Year From Orig inal Mammogram Procedure(s): MM tomosynthesis screening BI Accession Number(s): [id number] cc: Shakira Jay COMPLEX CARE NURSE PRACTITIONER EXAMINATION: MM SCREENING DIGITAL BREAST TOMOSYNTHESIS, BILATERAL [...] in OV> 09/26/23 0820 DD/ 1120 TD/TT: Loss Control Consultant: [facility] COMPLEX CARE NURSE PRACTITIONER IMG BI PROCEDURES Edited Resu lt - Final * PAP/HPV (01/10/2023) Pap Smear 1. NILM 1. NILM Comment:5 year follow up HPV Not Detected Undetected, Indeterminat e, Quantitative , Not Detected Comment:5 year follow up Historical Provider HEALTH MAINTENANCE Edited Result - Final from Last 3 Months or Most Recently Relevant to Health Maintenance Insurance [place] [address] DENTAL [facility] DENTAL - HSN PARTIAL (MEDICAID) Care Teams Cushion Spring Assembler Relationship Specialty Start Date End Date Shakira Jay FNP [address] [place] [address] PCP - General Family Medicine 02/16/22
--- OUTSIDE RECORDS SUMMARY | 2025-02-25 11:08 | XMS_ITS | Encounter Summary ---
Author Organization [employer] Address [address] [place] [address] 7 [place] [address] Care Team Providers Care Registered Diet Technician Name Role Phone [facility] Primary Care Provider [phone] Reason for Visit * Reason Onset Date Comments Appointment Request 02/24/2025 Encounter Details Date Type Department Care Team ([facility] st Contact Info) Description 02/24/2025 Telephone [facility] MEDICINE [address] [place], [place] [phone] [facility] [address] [place], [place] [phone] Appointment Request Social History Tobacco Use Types Packs/Day Years [...] Telephone Encounter - Libra Albarran RN - 02/24/2025 4:32 PM EST TC placed to patient [phone] to r/s sick on site appointment. RN r/s for 03/03/25 at noon, patient agreed to appointment date and time. Patient to f/u PRN. * Telephone Encounter - Regis Perez - 02/24/2025 1:06 PM EST Tc from pt requesting a call back to reschedule sick onsite appointment. Please contact pt at [phone]. documented in this encounter Plan of Treatment Upcoming Encounters Date Type Department Care Team (Late st Contact Info) Description 03/03/2025 10:15 AM EST Office Visit [facility] ADULT DENTAL [address] [place] [address] Yasmine العلي 03/03/2025 12:00 PM EST Office Visit [facility] MEDICINE [address] [place] [address] Ginny An DO [address] [place] [address] 03/13/2025 9:15 AM EST Office Visit [facility] MEDICINE [address] [place] [address] Shakira Jay FNP [address] [place] [address] 07/02/2025 9:30 AM EDT Office Visit [facility] OPTOMETRY [address] [place] [address] Yasemin Scott, OD [address] [place], [place] [phone] documented as of this encounter Visit Diagnoses Not on filedocumented in this encounter Additional Health Concerns Assessment Noted Time PHQ-9 Depression Total Score: 4 12/06/19 25 10:59 AM EDT documented as of this encounter Care Teams Registered Diet Technician Relationship Specialty Start Date End Date Misty ALFONSO Rosenberg [address] [place] [address] PCP - General Family Medicine 02/16/22 documented as of this encounter
== END 2025-02-25 10:07 | disposition home or self-care (01) ==
LOC: HO.US 10:06
PROVIDERS: PCP Registered Nurse; Visit Provider Registered Nurse
DX: N83.291 Other ovarian cyst, right side (principal); N83.292 Other ovarian cyst, left side; N63.11 Unspecified lump in the right breast, upper outer quadrant; N94.9 Unspecified condition associated with female genital organs and menstrual cycle
CPT/HCPCS: 76830; 76856

== ENCOUNTER → 2025-02-25 10:09 | Outpatient (BNV) | payer OTHER, SELFPAY | PROVIDERS: PCP Registered Nurse; Visit Provider Radiology Diagnostic Radiology | DX: R19.09 Other intra-abdominal and pelvic swelling, mass and lump (principal); N83.291 Other ovarian cyst, right side; N83.292 Other ovarian cyst, left side | CPT/HCPCS: 76830; 76856 ==

== ENCOUNTER 2025-02-25 13:48 | Outpatient (AMB) | payer OTHER, MEDICAID, SELFPAY ==
--- NOTE | 2025-02-25 13:56 | MHC.OFFVIS ---
Vital Signs 02/25/25 13:59 Height 5 ft 6 in Weight 128 lb BMI 20.7 BP 108/60 Intake Visit Reasons: Complex ovarian cyst Guest Relations Receptionist Required: No Information Interpreted: non-clinical & clinical Accompanied by: Spouse Allergies No Known Allergies Allergy (Verified 02/25/25 14:01) HPI Comments Details: Presenting referred from PCP regarding a 5 cm complex ovarian cyst seen on abdominal MRI. The patient is complaining of right breast lump 01/06/2025 abdominal MRI showed a 5 cm cystic lesion on the left adnexa Pelvic ultrasound done today showed the following: Uterus: The uterus is surgically absent. Right ovary: The right ovary measures 2.7 x 2.6 x 2.7 cm. There is a complex appearing hypoechoic structure measuring 1.8 x 1.8 x 1.7 cm which demonstrates low-level internal echoes. Left ovary: The left ovary measures 3.4 x 3.3 x 3.8 cm. There is a complex appearing hypoechoic structure with low-level internal echoes measuring 2.3 x 2.2 x 2.2 cm. There is an additional 1.1 x 1.9 x 1.4 cm cyst which demonstrates mild wall thickening. Pelvic fluid: There is free fluid in both adnexal regions.. US/US pelvic and transvaginal IMPRESSION: Complex appearing hypoechoic structures with low-level internal echoes in both adnexal regions which may represent hemorrhagic cysts. Follow-up is recommended to document resolution. 09/18 [facility] Surgical History Hx of hysterectomy Hx of appendectomy Family History Sister Asthma Social History Household Members: Spouse Household Members Other:: daughter Housing: House Alcohol intake: never Patient Tobacco Use Status: Never used Tobacco Use of substances other than those prescribed or required for medical reasons: No Current occupational status: employed Current occupation: [employer] Sexually active: Yes Sexual orientation: Straight/Heterosexual Gender identity: Female Female Reproductive History Menstrual Total pregnancies: 1 Full term: 1 Number of Living Children: 1 Review of Systems Const All systems reviewed & are unremarkable except as noted in HPI and below Card Reports as per HPI and Reports no additional complaints Resp Reports as per HPI and Reports no additional complaints GI Reports as per HPI and Reports no additional complaints Reports as per HPI Physical Exam Vital Signs: Last Vital Signs BP 108/60 02/25/25 13:59 BMI result Body Mass Index 20.7 Const General: cooperative, healthy appearing and comfortable Chest Chest palpation & inspection: normal inspection of the chest Breast/axilla inspection: inspection of breasts abnormal (R Br@ 11 ,lump 6 cm from nipple 2 cm in size @5, lump 5 cm from nipple,Lwnl) General: Yes bladder normal to palpation External Female Exam: No lesion Speculum Exam - Vagina: normal appearance of the vagina, normal vaginal discharge and not erythematous Speculum Exam - Cervix: Cervix absent Bimanual exam- vagina & uterus: bladder normal to palpation and uterus absent Bimanual Exam- Adnexa, other: Other (No masses detected) Assessment & Plan Assessment & Plan (1) Complex cyst of both ovaries: Code(s): N83.291 - Other ovarian cyst, right side; N83.292 - Other ovarian cyst, left side Category: Medical Plan: Discussed with the patient the bilateral complex ovarian cysts by ultrasound. Discussed with the patient the Ultrasound findings, the main limitation of transvaginal ultrasonography alone as a diagnostic tool to distinguish benign from malignant masses relates to its lack of specificity and low positive predictive value for cancer. The differential diagnosis discussed with the patient includes the following but not limited to: benign and malignant gynecological and non-gynecological causes. Discussed with the patient options of treatment including laparoscopy ovarian cystectomy/oophorectomy vs. expectant management with repeat US in repeating pelvic US in 6-12 weeks from previous US. If the ovarian complex cyst is persistent larger and / or more complex looking, or higher CA 125 will refer to gynecologic Oncology. All pros, cons, risks and benefits of each approach were discussed with the patient including but not limited to a delay in the diagnosis and treatment of ovarian cancer affecting the prognosis; The patient decided to go ahead with expectant management. Instructions given the patient to schedule a 3 months follow-up ultrasound appointment. All questions were answered & the patient verbalized understanding and agreed with the plan. (2) Breast lump on right side at 11 o'clock position: Comment: 11:00 lump 6 cm from the nipple 2 cm in size 05:00 lump 5 cm from nipple 2 cm size Code(s): N63.11 - Unspecified lump in the right breast, upper outer quadrant Category: Medical Plan: Discussed with the patient the finding on Breast exam (2 breast lumps) .The differential diagnosis includes but not limited to lump/cyst/pre cancer/cancer or dense breast tissue. The work up includes breast US and diagnostic mammogram and referred the patient for surgical breast consult. Orders: Orders US pelvic and transvaginal 2 Months N83.299 - Other ovarian cyst, unspecified side MM tomosynthesis diagnostic BI Today N63.11 - Unspecified lump in the right breast, upper outer quadrant US breast RT limited Today N63.11 - Unspecified lump in the right breast, upper outer quadrant Referrals General Surgery Referral N63.11 - Unspecified lump in the right breast, upper outer quadrant Coding Level of Care Code New Pt Level 3 (79980) Diagnoses Complex cyst of both ovaries N83.291; N83.292 Breast lump on right side at 11 o'clock position N63.11
[2025-02-25 13:59] VITALS: BP 108/60; BMI 20.7
== END 2025-02-25 14:45 | disposition home or self-care (01) ==
LOC: HO.HWS 13:48
PROVIDERS: PCP Registered Nurse; Visit Provider Obstetrics & Gynecology
DX: N83.291 Other ovarian cyst, right side (principal); N83.292 Other ovarian cyst, left side; N63.11 Unspecified lump in the right breast, upper outer quadrant
CPT/HCPCS: 99203